=== PATIENT | female | born 1940 | race Caucasian/White ===

== ENCOUNTER → 2023-11-19 10:37 | Outpatient (REF) | payer MEDICARE, OTHER, SELFPAY ==
[2023-11-19 11:28] LABS: Hematocrit 33.6 % (37.0-47.0); Hemoglobin 10.6 g/dL (12.0-16.0); Mean Corp Hgb Conc. 31.5 g/dL (33.0-37.0); Mean Corpuscular Hgb 28.3 pg (27.0-31.0); Mean Corpuscular Volume 89.6 fL (81.0-99.0); Mean Platelet Volume 10.2 fL (7.4-10.4); Platelet Count 147 10^3/uL (130-400); Red Blood Cell Count 3.75 10^6/uL (4.20-5.40); Red Cell Dist. Width 22.2 % (11.5-14.5); White Blood Cell Count 6.4 10^3/uL (4.8-10.8)
== END ==
LOC: OLABN 10:37
PROVIDERS: ATTENDING PHYSICIAN Student in an Organized Health Care Education/Training Program
DX: I89.0 Lymphedema, not elsewhere classified (principal)
CPT/HCPCS: 36415; 85027

== ENCOUNTER → 2023-11-26 09:49 | Outpatient (REF) | payer MEDICARE, OTHER, SELFPAY ==
[2023-11-27 11:15] LABS: Glycohemoglobin (HgbA1c) 8.5 % (4.0-5.6)
== END ==
LOC: OLABN 09:49
PROVIDERS: ATTENDING PHYSICIAN Student in an Organized Health Care Education/Training Program
DX: Z51.81 Encounter for therapeutic drug level monitoring (principal); Z79.84 Long term (current) use of oral hypoglycemic drugs
CPT/HCPCS: 36415; 83036

== ENCOUNTER → 2023-11-30 10:19 | Outpatient (REF) | payer MEDICARE, OTHER, SELFPAY ==
[2023-11-30 11:49] LABS: Vitamin D, 25-OH*** 17.3 ng/mL (30-80)
== END ==
LOC: OLABN 10:19
PROVIDERS: ATTENDING PHYSICIAN Student in an Organized Health Care Education/Training Program
DX: E55.9 Vitamin D deficiency, unspecified (principal)
CPT/HCPCS: 36415; 82306

== ENCOUNTER → 2024-01-05 11:40 | Outpatient (REF) | payer MEDICARE, OTHER, SELFPAY | LOC: RAD 11:40 | PROVIDERS: ATTENDING PHYSICIAN Internal Medicine | DX: R91.8 Other nonspecific abnormal finding of lung field (principal); R93.89 Abnormal findings on diagnostic imaging of other specified body structures | CPT/HCPCS: 71250 ==

== ENCOUNTER → 2024-01-06 11:48 | Outpatient (REF) | payer MEDICARE, OTHER, SELFPAY ==
[2024-01-06 13:04] LABS: HDL Cholesterol 33 mg/dl; LDL Cholesterol, Calculated 9 mg/dl; Total Cholesterol 98 mg/dl (50-199); Triglyceride 280 mg/dl (10-149); Very Low Density Lipoprotein 56 mg/dl (0-30)
== END ==
LOC: OLABN 11:48
PROVIDERS: ATTENDING PHYSICIAN Student in an Organized Health Care Education/Training Program
DX: E78.5 Hyperlipidemia, unspecified (principal)
CPT/HCPCS: 36415; 80061

== ENCOUNTER → 2024-02-01 11:36 | Outpatient (REF) | payer MEDICARE, OTHER, SELFPAY ==
[2024-02-01 12:43] LABS: Vitamin D, 25-OH*** 31.8 ng/mL (30-80)
== END ==
LOC: OLABN 11:36
PROVIDERS: ATTENDING PHYSICIAN Student in an Organized Health Care Education/Training Program
DX: E55.9 Vitamin D deficiency, unspecified (principal)
CPT/HCPCS: 36415; 82306

== ENCOUNTER → 2024-02-24 10:34 | Outpatient (REF) | payer MEDICARE, OTHER, SELFPAY ==
[2024-02-24 11:21] LABS: % Eosinophils 3.1 % (0-6); % Immature Granulocytes 0.3 % (0-0.5); % Lymphocytes 32.8 % (20.5-51.1); % Monocytes 10.1 % (1.7-9.3); % Neutrophils 52.7 % (42.2-75.2); Absolute Basophils 0.1 10^3/uL (0-0.2); Absolute Eosinophils 0.2 10^3/uL (0-0.7); Absolute Lymphocytes 2.2 10^3/uL (1.2-3.4); Absolute Monocytes 0.7 10^3/uL (0.1-0.6); Absolute Neutrophils 3.5 10^3/uL (1.4-6.5); Hematocrit 35.8 % (37.0-47.0); Hemoglobin 12.1 g/dL (12.0-16.0); Mean Corp Hgb Conc. 33.8 g/dL (33.0-37.0); Mean Corpuscular Hgb 31.3 pg (27.0-31.0); Mean Corpuscular Volume 92.5 fL (81.0-99.0); Mean Platelet Volume 10.6 fL (7.4-10.4); Nucleated Red Blood Cells % 0 %; Platelet Count 147 10^3/uL (130-400); Red Blood Cell Count 3.87 10^6/uL (4.20-5.40); Red Cell Dist. Width 14.6 % (11.5-14.5); White Blood Cell Count 6.7 10^3/uL (4.8-10.8)
[2024-02-24 12:17] LABS: ALT (SGPT) 17 U/L (0-35); AST (SGOT) 24 U/L (14-36); Albumin 3.1 g/dl (3.5-5.0); Alkaline Phosphatase 175 U/L (38-126); Blood Urea Nitrogen 13 mg/dl (7-17); Calcium 8.9 mg/dl (8.4-10.2); Carbon Dioxide 30 mmol/L (22-30); Chloride 96 mmol/L (98-107); Glucose 311 mg/dl (70-99); Magnesium 1.8 mg/dl (1.6-2.3); Potassium 3.3 mmol/L (3.5-5.1); Sodium 134 mmol/L (135-145); Total Bilirubin 0.6 mg/dl (0.2-1.3); Total Protein 6.3 g/dl (6.3-8.2); eGFR > 60.00
== END ==
LOC: OLABN 10:34
PROVIDERS: ATTENDING PHYSICIAN Student in an Organized Health Care Education/Training Program
DX: I10 Essential (primary) hypertension (principal)
CPT/HCPCS: 36415; 80053; 83735; 85025

== ENCOUNTER → 2024-03-03 10:11 | Outpatient (REF) | payer MEDICARE, OTHER, SELFPAY ==
[2024-03-03 11:38] LABS: Blood Urea Nitrogen 21 mg/dl (7-17); Calcium 8.4 mg/dl (8.4-10.2); Carbon Dioxide 33 mmol/L (22-30); Chloride 97 mmol/L (98-107); Glucose 196 mg/dl (70-99); Potassium 3.5 mmol/L (3.5-5.1); Sodium 137 mmol/L (135-145); eGFR > 60.00
[2024-03-03 13:14] LABS: Glycohemoglobin (HgbA1c) 11.7 % (4.0-5.6)
== END ==
LOC: OLABN 10:11
PROVIDERS: ATTENDING PHYSICIAN Student in an Organized Health Care Education/Training Program
DX: E87.6 Hypokalemia (principal); E11.65 Type 2 diabetes mellitus with hyperglycemia
CPT/HCPCS: 36415; 80048; 83036

== ENCOUNTER → 2024-03-10 10:15 | Outpatient (REF) | payer MEDICARE, OTHER, SELFPAY ==
[2024-03-11 09:11] LABS: Glycohemoglobin (HgbA1c) 11.9 % (4.0-5.6)
== END ==
LOC: OLABN 10:15
PROVIDERS: ATTENDING PHYSICIAN Student in an Organized Health Care Education/Training Program
DX: E11.42 Type 2 diabetes mellitus with diabetic polyneuropathy (principal)
CPT/HCPCS: 36415; 83036

== ENCOUNTER → 2024-04-04 20:30 | Outpatient (REF) | payer MEDICARE, OTHER, SELFPAY ==
[2024-04-05 13:26] LABS: Urine Albumin Negative (Neg - Trace); Urine Bilirubin Negative (Negative); Urine Character Clear (Clear); Urine Color Yellow; Urine Glucose Negative (Negative); Urine Ketone Negative (Negative); Urine Leukocyte Negative (Negative); Urine Nitrite Negative (Negative); Urine Occult Blood Negative (Negative); Urine Urobilinogen Negative (Neg - 1+)
== END ==
LOC: OLABN 20:30
PROVIDERS: ATTENDING PHYSICIAN Student in an Organized Health Care Education/Training Program
DX: E87.6 Hypokalemia (principal); R30.9 Painful micturition, unspecified
CPT/HCPCS: 81003; 87086

== ENCOUNTER → 2024-04-05 13:33 | Outpatient (REF) | payer MEDICARE, OTHER, SELFPAY ==
[2024-04-05 14:14] LABS: Blood Urea Nitrogen 15 mg/dl (7-17); Calcium 8.5 mg/dl (8.4-10.2); Carbon Dioxide 31 mmol/L (22-30); Chloride 100 mmol/L (98-107); Glucose 210 mg/dl (70-99); Potassium 3.2 mmol/L (3.5-5.1); Sodium 137 mmol/L (135-145); eGFR > 60.00
== END ==
LOC: OLABN 13:33
PROVIDERS: ATTENDING PHYSICIAN Student in an Organized Health Care Education/Training Program
DX: E87.6 Hypokalemia (principal)
CPT/HCPCS: 36415; 80048

== ENCOUNTER → 2024-04-09 20:00 | Outpatient (REF) | payer MEDICARE, OTHER, SELFPAY ==
[2024-04-10 01:37] LABS: Urine Albumin Negative (Neg - Trace); Urine Bilirubin Negative (Negative); Urine Character Slightly Cloudy (Clear); Urine Color Yellow; Urine Glucose Trace (Negative); Urine Ketone Negative (Negative); Urine Leukocyte Negative (Negative); Urine Nitrite Negative (Negative); Urine Occult Blood Negative (Negative); Urine Specific Gravity 1.015 (<1.030); Urine Urobilinogen Negative (Neg - 1+)
== END ==
LOC: OLAB 20:00
PROVIDERS: ATTENDING PHYSICIAN Student in an Organized Health Care Education/Training Program
DX: R30.9 Painful micturition, unspecified (principal)
CPT/HCPCS: 81003; 87086

== ENCOUNTER → 2024-04-11 11:18 | Outpatient (REF) | payer MEDICARE, OTHER, SELFPAY ==
[2024-04-11 12:42] LABS: Blood Urea Nitrogen 14 mg/dl (7-17); Calcium 8.7 mg/dl (8.4-10.2); Carbon Dioxide 30 mmol/L (22-30); Chloride 100 mmol/L (98-107); Glucose 260 mg/dl (70-99); Potassium 3.3 mmol/L (3.5-5.1); Sodium 138 mmol/L (135-145); eGFR > 60.00
== END ==
LOC: OLABN 11:18
PROVIDERS: ATTENDING PHYSICIAN Student in an Organized Health Care Education/Training Program
DX: E87.6 Hypokalemia (principal)
CPT/HCPCS: 80048

== ENCOUNTER → 2024-04-18 10:32 | Outpatient (REF) | payer MEDICARE, OTHER, SELFPAY ==
[2024-04-18 12:31] LABS: Blood Urea Nitrogen 13 mg/dl (7-17); Calcium 8.8 mg/dl (8.4-10.2); Carbon Dioxide 28 mmol/L (22-30); Chloride 102 mmol/L (98-107); Glucose 267 mg/dl (70-99); Potassium 3.4 mmol/L (3.5-5.1); Sodium 139 mmol/L (135-145); eGFR > 60.00
== END ==
LOC: OLABN 10:32
PROVIDERS: ATTENDING PHYSICIAN Student in an Organized Health Care Education/Training Program
DX: E87.6 Hypokalemia (principal)
CPT/HCPCS: 36415; 80048

== ENCOUNTER 2024-07-29 17:57 | Emergency (ER) | payer MEDICARE, OTHER, SELFPAY ==
[2024-07-29 18:00] VITALS: BP 154/79
[2024-07-29 18:03] VITALS: BP 154/79
[2024-07-29 18:07] VITALS: BMI 50.2
[2024-07-29 19:00] VITALS: BP 100/67
--- NOTE | 2024-07-29 19:09 | ED.GENMED ---
History of Present Illness
General
Chief Complaint: Fall
Source: patient
Exam Limitations: none
Time Seen by Provider: 07/29/24 18:27
History of Present Illness
History of Present Illness:
This is a 84 year old female that comes in with c/o fall. States that she was sitting on the toilet and her back started to hurt. States that she went to get up and the floor was slippery. States that her right leg went out from under her and she
landed on her buttocks. States that she hit her head on the wheelchair and her left leg was bent. States that she has left knee discomfort. Denies any LOC. States that she landed between the toilet and the wall. States that she was a little
nauseated today, has diarrhea on and off and a headache. States that she was dizzy in the morning but she has Vertigo. States that she doesn't have urinary burning but hurts. Denies any fever, chills, chest pain, SOB, abd pain, vomiting
Past History
Past History
ED Past Medical History: CVA, Fibromyalgia, GERD, Hypercholesterolemia, NIDDM, Hypothyroidism, Psychiatric and Other (Back pain, Spinal stenosis, Lymphedema, Vertigo)
ED Past Surgical History: Gynecological (Hysterectomy), Orthopedic (L4-L5 lumbar laminectomy 07/04/2014) and Other (thyroidectomy. Carpal tunnel and blepharoplasty, Cataracts, Eye lid surgery bilateral,Lumbar 4-5 discectomy,)
Social History
Tobacco: Former smoker
Alcohol: None
Drug: None
Personal: (Has a boyfriend)
Living: penitentiary ([facility])
Employment: Not employed
Family History
Family History: Unable to obtain
Review of Systems
Review of Systems
All Other Systems: ROS reviewed and negative except as documented in HPI and ROS
Constitutional: Reports no symptoms; Denies fever or chills
EENT: Reports no symptoms
Respiratory: Reports no symptoms; Denies cough or trouble breathing
Cardiac: Reports no symptoms; Denies chest pain
ABD/GI: Reports nausea and diarrhea (on and off); Denies abdominal pain or vomiting
: Reports other (c/o hurting but no burning); Denies dysuria, frequency or urgency
Musculoskeletal: Reports no symptoms
Skin: Reports no symptoms
Neurological: Reports dizzy (in the morning only) and headache
Psychiatric: Reports no symptoms
Phy Exam
General Physical Exam
General Presentation: no apparent distress
General age: appears stated age
General Skin: warm and dry
General Habitus: elderly
General Mental: alert
General Hydration: appears well hydrated
ENT Exam
ENT Exam: TM's normal, pharynx normal and neck supple
Eye Exam
Eye Exam: EOMI
Cardiovascular Exam
Cardiovascular Exam: regular rate/rhythm and normal peripheral pulses
Pulmonary Exam
Pulmonary Exam: lungs clear, no respiratory distress, no rales, chest non tender, no crackles, no rhonchi, no wheezing and no cough
Gastrointestinal Exam
Gastrointestinal Exam: normal bowel sounds, soft, no organomegaly, no pulsatile mass, non distended and tender (Tenderness left side only with palpation. NO pain unless palpated)
Musculoskeletal Exam
Musculoskeletal Exam: full ROM, edema (Chronic nonpitting lower leg edema) and other (Negative cervical neck tenderness. Moving all extremities. Negative discomfort with flexion of the left knee)
Skin Exam
Skin Exam: normal color, warm/dry and no petechia
Psychiatric Exam
Psychiatric Exam: normal mood/affect
Course
Orders/Labs/Results
Orders:
Orders
07/29/24 18:54
CT Head W/o Iv Contrast Urgent
Comment:
Reason For Exam: Fall hitting head on wheelchair
CR Knee - Left 4 Or More View* Urgent
Comment:
Reason For Exam: Fall knee pain
07/29/24 19:35
Urinalysis Reflex To Culture Urgent
Date Specimen was Collected: 07/29/24
Time Specimen was Collected: 19:34
Abnormal Lab Results
07/29/24
19:35
Urine Glucose 1+ A
(Negative)
uRINE NEGATIVE FOR INFECTION.
Vital Signs
Initial and Last Documented VS:
Initial Vital Signs
Temp Pulse Resp BP Pulse Ox
97.8 F 78 18 154/79 94
07/29/24 18:03 07/29/24 18:03 07/29/24 18:03 07/29/24 18:03 07/29/24 18:03
Last Documented Vital Signs
Temp Pulse Resp BP Pulse Ox
97.8 F 78 18 154/79 94
07/29/24 18:03 07/29/24 18:03 07/29/24 18:03 07/29/24 18:03 07/29/24 18:03
MDM/Problems Addressed
Differential Diagnosis Includes:
Accidental fall, Knee sprain left, Intracranial bleed
MDM/Problems Addressed:
This is a 84 year old female that comes in with c/o fall. States that she was getting up of the toilet and the floor was slippery and she went down on her buttocks. States that she hit her head on the wheelchair and her left leg was in a funny
position causing left knee discomfort.
Will get X-ray knee and CT head. Will also get urine as patient c/o it hurting.
Back into see patient. Explained that the CT of the head was negative and there is no fracture or disclocation of the knee but degenerative changes. Patient will go back to the assisted.
Chronic conditions affecting care:
NA
Acute Exacerbation and/or Progression of Chronic Illness:
NA
*Radiology
Radiology exam reviewed: radiology read reviewed (Left knee-NO acute osseous abnormality. Severe degenerative changes of the knee most pronounced in the medial compartment. CT head-NO acute intracranial abnormality noted. Moderate atrophy with
sequelae of moderate small vessel ischemic disease. )
*Pulse Oximetry
Patient hypoxic: no
*EKG
Interpreted by ED Provider?: NA
Rate: EKG- N/A
*Crop Picker Interpretation
Rate: normal
Heart Rate: 80
Rhythm: sinus
*Critical Care Note
Total Time (30-74mins, 75-104mins- exclusive of procedures): Not Applicable
ED Attending Note
-
Portions of this chart may have been created with voice recognition software.� Occasional wrong word or��sound alike� substitutions may have occurred due to the inherent limitations of voice recognition software.
Discharge Plan
Departure
Patient Disposition: Retirement/SNF
Date of Disposition: 07/29/24
Time of Disposition: 20:46
Patient with high blood pressure during this ER visit?: Yes
Condition: Good
Covid-19: Not Applicable
Discharge Problem:
Accidental fall
Instructions: Preventing falls in adults, BLOOD PRESSURE
Prescriptions:
No Action
levothyroxine 137 MCG tablet
137 mcg PO DAILY
atorvastatin 40 MG tablet
40 mg PO QPM 30 Days Qty: 30 0RF
metoprolol succinate 25 MG tablet extended release 24 hr
25 mg PO DAILY 30 Days Qty: 30 0RF
ammonium lactate 12 % lotion
1 applic TOPICAL DAILY
Rx Instructions:
to legs
glipizide 5 mg tablet extended release 24hr
5 mg PO DAILY
Januvia 100 mg tablet
100 mg PO DAILY
diclofenac sodium 1 % gel
1 ea TOPICAL BID PRN (Reason: topical pain)
apixaban 5 mg Tablet
5 mg PO BID
furosemide 40 mg Tablet
40 mg PO BID AT 0800,1600 30 Days Qty: 60 0RF
polyethylene glycol 3350 17 gram Powder In Packet
17 g PO DAILY 30 Days Qty: 30 0RF
Rx Instructions:
Hold if regular bowel movements or diarrhea
miconazole nitrate [Miconazorb AF] 2 % Powder
1 applic topical BID 30 Days Qty: 85 0RF
oxycodone-acetaminophen 5-325 mg Tablet
2 tab PO Q6HPRN PRN (Reason: MODERATE PAIN) 30 Days Qty: 30 0RF
pantoprazole 40 mg Tablet,Delayed Release (Dr/Ec)
40 mg PO DAILY 30 Days Qty: 30 0RF
guaifenesin [Mucinex] 600 mg Tablet Extended Release 12hr
600 mg PO Q12 30 Days Qty: 60 0RF
potassium chloride [Klor-Con M20] 20 MEQ tablet,ER particles/crystals
20 meq PO BID 30 Days Qty: 0 0RF
Referrals:
Ba Roe DO [Family Provider] - Call in 1-3 days for appt
Activity Restrictions/Additional Instructions:
As discussed, your CT of the head is negative for any acute process. Your Knee x-ray is negative for any fractures or dislocation. There is a lot of degenerative changes. Please follow up with the family doctor as needed. Tylenol 1000mg every 6
hours as needed for pain IF YOU HAVE ANY OTHER CONCERNS PLEASE RETURN TO THE EMERGENCY ROOM
Interventions
Interventions:
*Risk Screen - Suicide Last Done: 07/29/24 18:07
*General Assessment Last Done: 07/29/24 18:07
*Neglect/Abuse Screening Last Done: 07/29/24 18:07
*ED COVID-19 Vaccine History Last Done: 07/29/24 18:07
ED-Musculoskeletal Assessment Last Done: 07/29/24 18:10
ED- Neurological Assessment Last Done: 07/29/24 18:10
ED-Skin Assessment Last Done: 07/29/24 18:10
Discharge Date and Time
Print Language: BULGARIAN
[2024-07-29 19:45] LABS: Urine Albumin Trace (Neg - Trace); Urine Bilirubin Negative (Negative); Urine Character Clear (Clear); Urine Color Straw; Urine Glucose 1+ (Negative); Urine Ketone Negative (Negative); Urine Leukocyte Negative (Negative); Urine Nitrite Negative (Negative); Urine Occult Blood Negative (Negative); Urine Urobilinogen Negative (Neg - 1+)
[2024-07-29 20:28] VITALS: BP 119/102
[2024-07-29 23:24] VITALS: BP 137/79
[2024-07-29] MEDS: TYLENOL 1000 MG PO (23:29)
== END 2024-07-30 00:40 ==
LOC: EMR 17:57
PROVIDERS: Clinical Nurse Specialist Family Health; EMERGENCY PHYSICIAN Student in an Organized Health Care Education/Training Program; FAMILY PHYSICIAN Student in an Organized Health Care Education/Training Program
DX: M25.562 Pain in left knee (principal); W18.12XA Fall from or off toilet with subsequent striking against object, initial encounter; E03.9 Hypothyroidism, unspecified; E11.36 Type 2 diabetes mellitus with diabetic cataract; E78.00 Pure hypercholesterolemia, unspecified; K21.9 Gastro-esophageal reflux disease without esophagitis; M79.7 Fibromyalgia; Z86.73 Personal history of transient ischemic attack (TIA), and cerebral infarction without residual deficits; Z90.710 Acquired absence of both cervix and uterus
CPT/HCPCS: 99284; 70450; 73564; 81003

== ENCOUNTER → 2024-08-18 09:55 | Outpatient (REF) | payer MEDICARE, OTHER, SELFPAY ==
[2024-08-18 11:05] LABS: C-Reactive Protein < 5.00 mg/L (0.0-10.00)
[2024-08-18 13:47] LABS: Erythrocyte Sed Rate 19 mm/hour (0-20)
== END ==
LOC: OLABN 09:55
PROVIDERS: ATTENDING PHYSICIAN Student in an Organized Health Care Education/Training Program
DX: H49.20 Sixth [abducent] nerve palsy, unspecified eye (principal)
CPT/HCPCS: 36415; 85652; 86140

== ENCOUNTER → 2024-08-19 06:59 | Outpatient (REF) | payer MEDICARE, OTHER, SELFPAY ==
[2024-08-19 07:51] LABS: % Basophils 0.8 % (0-2); % Eosinophils 3.7 % (0-6); % Immature Granulocytes 0.3 % (0-0.5); % Lymphocytes 29.9 % (20.5-51.1); % Monocytes 9.4 % (1.7-9.3); % Neutrophils 55.9 % (42.2-75.2); Absolute Basophils 0.1 10^3/uL (0-0.2); Absolute Eosinophils 0.3 10^3/uL (0-0.7); Absolute Lymphocytes 2.3 10^3/uL (1.2-3.4); Absolute Monocytes 0.7 10^3/uL (0.1-0.6); Absolute Neutrophils 4.2 10^3/uL (1.4-6.5); Hematocrit 37.9 % (37.0-47.0); Hemoglobin 13.1 g/dL (12.0-16.0); Mean Corp Hgb Conc. 34.6 g/dL (33.0-37.0); Mean Corpuscular Hgb 32.5 pg (27.0-31.0); Nucleated Red Blood Cells % 0 %; Platelet Count 137 10^3/uL (130-400); Red Blood Cell Count 4.03 10^6/uL (4.20-5.40); Red Cell Dist. Width 13.4 % (11.5-14.5); White Blood Cell Count 7.6 10^3/uL (4.8-10.8)
[2024-08-19 07:54] LABS: ALT (SGPT) 26 U/L (0-35); AST (SGOT) 30 U/L (14-36); Albumin 3.3 g/dl (3.5-5.0); Alkaline Phosphatase 148 U/L (38-126); Blood Urea Nitrogen 15 mg/dl (7-17); Calcium 8.6 mg/dl (8.4-10.2); Carbon Dioxide 33 mmol/L (22-30); Chloride 97 mmol/L (98-107); Glucose 355 mg/dl (70-99); Potassium 3.7 mmol/L (3.5-5.1); Sodium 137 mmol/L (135-145); Total Bilirubin 0.6 mg/dl (0.2-1.3); Total Protein 6.2 g/dl (6.3-8.2); eGFR > 60.00
[2024-08-19 08:09] LABS: Free T4 0.79 ng/dl (0.78-2.19)
[2024-08-19 08:23] LABS: TSH 1.57 uIU/ml (0.47-4.68)
[2024-08-19 11:46] LABS: Glycohemoglobin (HgbA1c) 10.8 % (4.0-5.6)
== END ==
LOC: OLABN 06:59
PROVIDERS: ATTENDING PHYSICIAN Student in an Organized Health Care Education/Training Program
DX: I50.32 Chronic diastolic (congestive) heart failure (principal); E11.9 Type 2 diabetes mellitus without complications
CPT/HCPCS: 36415; 80053; 83036; 84439; 84443; 85025

== ENCOUNTER → 2024-09-26 11:02 | Outpatient (REF) | payer OTHER, MEDICARE, SELFPAY ==
[2024-09-26 12:36] LABS: Creatine Phosphokinase 42 U/L (30-135)
== END ==
LOC: OLABN 11:02
PROVIDERS: ATTENDING PHYSICIAN Student in an Organized Health Care Education/Training Program
DX: H49.21 Sixth [abducent] nerve palsy, right eye (principal)
CPT/HCPCS: 36415; 82550

== ENCOUNTER → 2024-11-03 10:56 | Outpatient (REF) | payer MEDICARE, OTHER, SELFPAY ==
[2024-11-03 12:26] LABS: % Basophils 0.6 % (0-2); % Eosinophils 3.3 % (0-6); % Immature Granulocytes 0.1 % (0-0.5); % Lymphocytes 29.6 % (20.5-51.1); % Neutrophils 57.4 % (42.2-75.2); Absolute Eosinophils 0.2 10^3/uL (0-0.7); Absolute Monocytes 0.6 10^3/uL (0.1-0.6); Absolute Neutrophils 3.9 10^3/uL (1.4-6.5); Hematocrit 37.1 % (37.0-47.0); Hemoglobin 12.4 g/dL (12.0-16.0); Mean Corp Hgb Conc. 33.4 g/dL (33.0-37.0); Mean Corpuscular Hgb 31.6 pg (27.0-31.0); Mean Corpuscular Volume 94.6 fL (81.0-99.0); Mean Platelet Volume 11.1 fL (7.4-10.4); Nucleated Red Blood Cells % 0 %; Platelet Count 153 10^3/uL (130-400); Red Blood Cell Count 3.92 10^6/uL (4.20-5.40); Red Cell Dist. Width 13.8 % (11.5-14.5); White Blood Cell Count 6.7 10^3/uL (4.8-10.8)
[2024-11-03 12:37] LABS: Blood Urea Nitrogen 16 mg/dl (7-17); Calcium 8.9 mg/dl (8.4-10.2); Carbon Dioxide 33 mmol/L (22-30); Chloride 97 mmol/L (98-107); Glucose 428 mg/dl (70-99); Potassium 4.3 mmol/L (3.5-5.1); Sodium 134 mmol/L (135-145); eGFR > 60.00
== END ==
LOC: OLABN 10:56
PROVIDERS: ATTENDING PHYSICIAN Student in an Organized Health Care Education/Training Program
DX: I50.32 Chronic diastolic (congestive) heart failure (principal); E83.42 Hypomagnesemia
CPT/HCPCS: 36415; 80048; 83735; 85025

== ENCOUNTER → 2024-11-21 12:03 | Outpatient (REF) | payer MEDICARE, OTHER, SELFPAY ==
[2024-11-21 12:43] LABS: % Basophils 0.6 % (0-2); % Eosinophils 2.9 % (0-6); % Immature Granulocytes 0.5 % (0-0.5); % Lymphocytes 25.2 % (20.5-51.1); % Monocytes 9.3 % (1.7-9.3); % Neutrophils 61.5 % (42.2-75.2); Absolute Basophils 0.1 10^3/uL (0-0.2); Absolute Eosinophils 0.2 10^3/uL (0-0.7); Absolute Monocytes 0.8 10^3/uL (0.1-0.6); Hematocrit 38.7 % (37.0-47.0); Hemoglobin 12.7 g/dL (12.0-16.0); Mean Corp Hgb Conc. 32.8 g/dL (33.0-37.0); Mean Corpuscular Hgb 31.8 pg (27.0-31.0); Mean Platelet Volume 11.2 fL (7.4-10.4); Nucleated Red Blood Cells % 0 %; Platelet Count 147 10^3/uL (130-400); Red Blood Cell Count 3.99 10^6/uL (4.20-5.40); White Blood Cell Count 8.1 10^3/uL (4.8-10.8)
[2024-11-21 13:05] LABS: ALT (SGPT) 37 U/L (0-35); AST (SGOT) 40 U/L (14-36); Albumin 3.4 g/dl (3.5-5.0); Alkaline Phosphatase 200 U/L (38-126); Blood Urea Nitrogen 21 mg/dl (7-17); Calcium 8.6 mg/dl (8.4-10.2); Carbon Dioxide 33 mmol/L (22-30); Chloride 95 mmol/L (98-107); Glucose 357 mg/dl (70-99); HDL Cholesterol 43 mg/dl; LDL Cholesterol, Calculated 35 mg/dl; Potassium 3.6 mmol/L (3.5-5.1); Sodium 134 mmol/L (135-145); Total Bilirubin 0.8 mg/dl (0.2-1.3); Total Cholesterol 131 mg/dl (50-199); Total Protein 6.4 g/dl (6.3-8.2); Triglyceride 269 mg/dl (10-149); Very Low Density Lipoprotein 53 mg/dl (0-30); eGFR > 60.00
[2024-11-21 13:20] LABS: Free T4 0.79 ng/dl (0.78-2.19)
[2024-11-21 13:34] LABS: TSH 1.53 uIU/ml (0.47-4.68)
[2024-11-22 09:14] LABS: Glycohemoglobin (HgbA1c) 10.5 % (4.0-5.6)
== END ==
LOC: OLABN 12:03
PROVIDERS: ATTENDING PHYSICIAN Student in an Organized Health Care Education/Training Program
DX: E11.65 Type 2 diabetes mellitus with hyperglycemia (principal)
CPT/HCPCS: 36415; 80053; 80061; 83036; 84439; 84443; 85025

== ENCOUNTER 2024-12-07 18:19 | Observation (INO) | payer MEDICARE, OTHER, SELFPAY ==
[2024-12-07 13:51] VITALS: BMI 47.3
[2024-12-07 14:04] VITALS: BP 146/71
[2024-12-07 14:07] VITALS: BP 146/71
[2024-12-07 14:08] LABS: Glucose - Point of Care 338 mg/dl (70-99)
--- NOTE | 2024-12-07 14:22 | ED.CVA ---
History of Present Illness
General
Chief Complaint: CVA/TIA Symptoms
Source: patient, ambulance crew and senior living
Exam Limitations: none
Time Seen by Provider: 12/07/24 14:11
Nursing documentation reviewed up to this point in time: agreed with
Onset of Stroke Symptoms
Onset of symptoms known: Yes
Date of onset of symptoms: 12/07/24
History of Present Illness
History of Present Illness:
84-year-old female with a past medical history of hyperlipidemia, CKD, diabetes, A-fib on Eliquis who presents to the emergency department from [facility] after she was noted to have facial droop. Patient is a poor historian with poor
insight�she says 'I do not know why I am here, they were worried about me.' She acknowledges that they mention she had a facial droop. She says otherwise she feels fine but when pressed she complains of pain in her left hip and also complains of
some dizziness. Denies chest pain, abdominal pain, headache, acute vision changes or speech issues. [facility] report the patient chronically minimizes her symptoms. They report that 3 to 4 days ago she had a minor
mechanical fall unsure if she had any head strike but she was complaining of pain in her left hip after the fall. She was having trouble ambulating due to this pain. Since the fall she has been complaining of dizziness which is a new complaint per
staff (patient says it is not new). Today around lunchtime was noted to have a left-sided facial droop. Unclear onset. EMS called to bring her to the hospital.
Past History
Past History
ED Past Medical History: CVA, Fibromyalgia, GERD, Hypercholesterolemia, NIDDM, Hypothyroidism, Psychiatric and Other (Back pain, Spinal stenosis, Lymphedema, Vertigo)
ED Past Surgical History: Gynecological (Hysterectomy), Orthopedic (L4-L5 lumbar laminectomy 07/04/2014) and Other (thyroidectomy. Carpal tunnel and blepharoplasty, Cataracts, Eye lid surgery bilateral,Lumbar 4-5 discectomy,)
Social History
Tobacco: Former smoker
Alcohol: None
Drug: None
Personal: (Has a boyfriend)
Living: senior living ([facility])
Employment: Not employed
Family History
Family History: Unable to obtain
Review of Systems
Review of Systems
All Other Systems: ROS reviewed and negative except as documented in HPI and ROS
Respiratory: Denies trouble breathing
Cardiac: Denies chest pain
ABD/GI: Denies abdominal pain or vomiting
: Denies flank pain
Musculoskeletal: Reports joint pain (Hip pain on the left); Denies neck pain
Neurological: Reports dizzy and weakness (Facial droop); Denies headache
Phy Exam
Physical Exam
Physical Exam:
General: Awake, alert, oriented x3; no acute distress
Head: Normocephalic, atraumatic
Eyes: Conjunctiva normal, EOMI, pupils equal round and reactive to light bilaterally
Throat: Airway intact, handling secretions
Neck: Trachea midline, no cervical spine tenderness
Lungs: Clear to auscultation bilaterally, no wheezing, rales, rhonchi
Heart: Regular rate and irregularly irregular rhythm, no murmurs, gallops, or rubs
Abd: Soft, non distended, nontender
Neuro: Patient has left-sided facial droop, speech fluid no dysarthria or aphasia, no limb ataxia; sensory exam intact throughout all extremities; strength testing upper extremities 5/5 proximally and distally; strength testing lower extremities she
has 3/5 strength proximally left lower extremity, 4/5 strength approximately right lower extremity, distal strength intact bilaterally in the lower legs 5/5
Skin: no rash
Extremities: Patient has pain with passive range of motion of the left hip; extremities otherwise atraumatic and no tenderness; she has edema in the lower extremities bilaterally, equal pulses in all extremities
Scores
NIH Stroke Score
Level of Consciousness: 0 - Alert
LOC Questions: 0-Answers both correctly
LOC Commands: 0-Performs both correctly
Best Horizontal Gaze: 0-Normal
Visual Robertson: 0=Normal, no visual loss
Facial Palsy: 2=Partial paralysis
Motor - Right Arm: 0=No drift 10 seconds
Motor - Left Arm: 0=No drift 10 seconds
Motor - Right Le-Drift < 5 seconds
Motor - Left Le-Drift < 5 seconds
Limb Ataxia: 0-Absent
Sensation: 0-Normal
Best Language: 0-No aphasia
Dysarthria: 0-Normal
Extinction and Inattention: 0-No abnormality
Total Score:: 4
Thrombolytic Contraindication
Inclusion and Exclusion criteria reviewed: Yes
Reasons for NON-Tx with Thrombolytics ABSOLUTE Exclusions: Greater than 4.5 hrs from onset of sxs (Onset unclear, dizziness started a few days ago) and Patient taking oral anticoagulant and last dose within 48 hours
Heart Failure Risk
Heart Failure Risk Score: Not Applicable
Heart Score for Chest Pain Patients
STEMI patient?: Not applicable
Withdrawal Assessment of Alcohol
Withdrawal Assessment Completed?: Not applicable
Course
Orders/Labs/Results
Orders:
Orders
12/07/24 13:56
Electrocardiogram (*1) Urgent
Reason for Study: Vertigo / Dizzy
EKG- Treatment ONCE
12/07/24 14:17
Complete Blood Count/With Diff Urgent
Comprehensive Metabolic Panel Urgent
12/07/24 14:20
CT Head W/o Iv Contrast Urgent
Comment:
Reason For Exam: left facial droop
12/07/24 14:23
CR Hip - LT w/wo Pel 2-3 Vw* Urgent
Comment:
Reason For Exam: left hip pain
Include a pelvis x-ray?: Yes
12/07/24 14:24
Consult Neurology [NEUROLOGY CONSULT] Urgent
Consulting Provider: Rod Young
Was physician already notified: Yes
12/07/24 17:16
Doxycycline [Vibramycin] 100 mg PO NOW STA
Abnormal Lab Results
12/07/24 12/07/24
14:06 14:17
RBC 4.11 L 10^6/uL
(4.20-5.40)
MCH 31.9 H pg
(27.0-31.0)
Abs Immat Gran (auto) 0.1 H 10^3/uL
(0-0.05)
Absolute Monos (auto) 0.7 H 10^3/uL
(0.1-0.6)
Immature Gran % 0.6 H %
(0-0.5)
Chloride 96 L mmol/L
(98-107)
Carbon Dioxide 37 H mmol/L
(22-30)
Glucose 303 H mg/dl
(70-99)
Albumin 3.3 L g/dl
(3.5-5.0)
POC Glucose 338 H mg/dl
(70-99)
12/07/24 14:17
12/07/24 14:17
Vital Signs
Initial and Last Documented VS:
Initial Vital Signs
BP
146/71
12/07/24 14:04
Last Documented Vital Signs
Temp Pulse Resp BP Pulse Ox
36.7 C 53 16 146/71 96
12/07/24 14:07 12/07/24 14:15 12/07/24 16:00 12/07/24 14:07 12/07/24 14:15
MDM/Problems Addressed
Differential Diagnosis Includes:
Facial droop: Phelan's palsy, CVA, brain bleed
Dizziness: Stroke, anemia, dehydration, brain bleed
Left hip pain: Fracture, contusion, dislocation
MDM/Problems Addressed:
84-year-old female presents for evaluation of left facial droop also has been complaining of dizziness at least for the past few days and some left hip pain after a minor fall. She is on Eliquis. Vitals and exam as above. No stroke alert called
given unclear onset and anticoagulant use. I did however discussed with neurology who came to bedside for evaluation. Will send for CT head. Check x-ray of the hip. Check labs including a CBC and a CMP. EKG on arrival does show atrial
fibrillation. Will monitor closely reassess after the above.
CT head shows acute on chronic maxillary sinusitis�can cover with antibiotic. No acute intracranial abnormality. X-ray of the hip shows no fracture. Case discussed with neurology at length�they feel that some of the dizziness could be from BPPV.
Subtle facial droop could be a stroke but even if this is a stroke unlikely that there would be any acute change to her management. Unlikely that she would be a candidate for carotid endarterectomy and with full anticoagulation on board would not
adjust blood thinners. Nevertheless I think with diagnosis of stroke in question she should be admitted for serial neurologic exams. Discussed case with hospitalist.
Chronic conditions affecting care:
A-fib on Eliquis, diabetes, hyperlipidemia
*Radiology
Radiology exam reviewed: radiology read reviewed
*Pulse Oximetry
Patient hypoxic: no
*EKG
Interpreted by ED Provider?: Yes
Heart Rate: 59
Rate: bradycardiac
Rhythm: a-fib
[place]: normal axis
Interval: normal interval
QRS Pattern: low voltage
Ischemia: other (Inferior infarct age undetermined)
*Critical Care Note
Total Time (30-74mins, 75-104mins- exclusive of procedures): Not Applicable
Data Reviewed
Review of Other/Old Records Reveals: Labs and Records
Source: patient, ambulance crew and senior living
Patient Management
Discussion with other providers: Hospitalist (Discussed with hospitalist) and Flexo Operator (Discussed with neurologist)
Escalation/DeEscalation of care consider admission/obs:
Admission indicated
ED Attending Note
-
Portions of this chart may have been created with voice recognition software.� Occasional wrong word or��sound alike� substitutions may have occurred due to the inherent limitations of voice recognition software.
Discharge Plan
Departure
Patient Disposition: Admit
Date of Disposition: 12/07/24
Time of Disposition: 17:10
Admit to doctor: Dinah
Presentation/result/management discussed w/ accepting MD/DO: Hospitalist
Discharge Problem:
Acute CVA (cerebrovascular accident), Dizziness, Hyperglycemia, Sinusitis
Prescriptions:
No Action
atorvastatin 40 MG tablet
40 mg PO QPM 30 Days Qty: 30 0RF
metoprolol succinate 25 MG tablet extended release 24 hr
25 mg PO DAILY 30 Days Qty: 30 0RF
Januvia 100 mg tablet
100 mg PO DAILY
apixaban 5 mg Tablet
5 mg PO BID
potassium chloride [Klor-Con M20] 20 MEQ tablet,ER particles/crystals
20 meq PO BID 30 Days Qty: 0 0RF
Arnicare gel
1 applic topical HS
acetaminophen 325 mg Tablet
650 mg PO Q4HPRN PRN (Reason: mild pain/fever)
glipizide 10 mg Tablet Extended Release 24hr
10 mg PO DAILY
ondansetron HCl [Zofran] 4 mg Tablet
4 mg PO Q8HPRN PRN (Reason: nausea)
sennosides-docusate sodium [Senna-S] 8.6-50 mg Tablet
1 tab-cap PO DAILY
meclizine 12.5 mg Tablet
12.5 mg PO Q6HPRN PRN (Reason: vertigo)
tramadol 50 mg Tablet
50 mg PO BIDPRN PRN (Reason: moderate pain)
meloxicam 7.5 mg Tablet
7.5 mg PO DAILY
levothyroxine 100 mcg Tablet
100 mcg PO DAILY
famotidine [Pepcid] 20 mg Tablet
20 mg PO DAILY
magnesium hydroxide [Milk of Magnesia] 400 mg/5 mL Suspension
30 ml PO HSPRN PRN (Reason: constipation)
calcium carbonate [Calcium 500] 500 mg calcium (1,250 mg) Tablet
500 mg PO BID
ascorbic acid (vitamin C) [Vitamin C] 500 mg Tablet
500 mg PO DAILY
bisacodyl 10 mg Suppository
10 mg MD [id number] PRN (Reason: 3 days no bm,mom ineffective)
ferrous sulfate 325 mg (65 mg iron) Tablet
325 mg PO DAILY
aspirin 81 mg Tablet,Chewable
81 mg PO DAILY
furosemide 20 mg Tablet
60 mg PO DAILY
albuterol sulfate 90 mcg/actuation Hfa Aerosol Inhaler
1 puff INHALATION R Q6HPRN PRN (Reason: sob)
sertraline 50 mg Tablet
50 mg PO DAILY
insulin aspart U-100 [Novolog FlexPen U-100 Insulin] 100 unit/mL (3 mL) Insulin Pen
1 sliding scale dose SC QID
Rx Instructions:
201-250=2u,251-300=4u,301-350=6u,351-400=8u,>400=10u
pregabalin 50 mg Capsule
50 mg PO BID
Vagisil Anti-Itch 1 % Towelette
1 towel TOPICAL DAILY
Patient Comments:
12/07/24: take for 7 days starting 12/02/24
mirabegron [Myrbetriq] 25 mg Tablet Extended Release 24 Hr
25 mg PO QPM
magnesium oxide 400 mg magnesium Tablet
400 mg PO BID
guaifenesin [Mucinex] 600 mg tablet extended release 12hr
600 mg PO [id number] PRN (Reason: cough)
ammonium lactate 12 % Lotion
1 applic TOPICAL DAILY
Referrals:
Ba Roe DO [Family Provider] -
Interventions
Interventions:
*General Assessment Last Done: 12/07/24 14:07
*Neglect/Abuse Screening Last Done: 12/07/24 14:07
*ED- Fall Risk Assessment Last Done: 12/07/24 14:16
*ED COVID-19 Vaccine History Last Done: 12/07/24 14:16
ED- Pulmonary Assessment Last Done: 12/07/24 14:05
ED- Neurological Assessment Last Done: 12/07/24 14:05
ED- Cardiac Assessment Last Done: 12/07/24 14:05
ED Swallowing Screen Last Done: 12/07/24 14:05
Discharge Date and Time
Print Language: CONGOLESE
[2024-12-07 14:31] LABS: % Basophils 0.6 % (0-2); % Immature Granulocytes 0.6 % (0-0.5); % Lymphocytes 25.5 % (20.5-51.1); % Monocytes 8.9 % (1.7-9.3); % Neutrophils 61.4 % (42.2-75.2); Absolute Basophils 0.1 10^3/uL (0-0.2); Absolute Eosinophils 0.3 10^3/uL (0-0.7); Absolute Immature Granulocytes 0.1 10^3/uL (0-0.05); Absolute Lymphocytes 2.1 10^3/uL (1.2-3.4); Absolute Monocytes 0.7 10^3/uL (0.1-0.6); Absolute Neutrophils 5.1 10^3/uL (1.4-6.5); Hematocrit 39.2 % (37.0-47.0); Hemoglobin 13.1 g/dL (12.0-16.0); Mean Corp Hgb Conc. 33.4 g/dL (33.0-37.0); Mean Corpuscular Hgb 31.9 pg (27.0-31.0); Mean Corpuscular Volume 95.4 fL (81.0-99.0); Mean Platelet Volume 10.2 fL (7.4-10.4); Nucleated Red Blood Cells % 0 %; Platelet Count 149 10^3/uL (130-400); Red Blood Cell Count 4.11 10^6/uL (4.20-5.40); Red Cell Dist. Width 13.9 % (11.5-14.5); White Blood Cell Count 8.3 10^3/uL (4.8-10.8)
[2024-12-07 14:47] LABS: ALT (SGPT) 22 U/L (0-35); AST (SGOT) 26 U/L (14-36); Albumin 3.3 g/dl (3.5-5.0); Alkaline Phosphatase 122 U/L (38-126); Blood Urea Nitrogen 17 mg/dl (7-17); Calcium 8.7 mg/dl (8.4-10.2); Carbon Dioxide 37 mmol/L (22-30); Chloride 96 mmol/L (98-107); Estimated Creatinine Clearance 53 ml/min; Glucose 303 mg/dl (70-99); Potassium 3.9 mmol/L (3.5-5.1); Sodium 136 mmol/L (135-145); Total Bilirubin 0.8 mg/dl (0.2-1.3); Total Protein 6.4 g/dl (6.3-8.2); eGFR 56.25
--- NOTE | 2024-12-07 17:14 | HPS.HSE ---
Family Physician
-
Family Physician: Ba Roe DO
Chief Complaint
-
dizzy
left facial droop
History of Present Illness
84-year-old female with a past medical history of hyperlipidemia, CKD, diabetes, A-fib on Eliquis,CHF who presents to the emergency department from [facility] after she was noted to have facial droop. she is been having dizziness since this
Thursday. she also complained of ALVAREZ. denied fever, chills, congestion, cough.denied chest pain, sob. denied abdominal pain,n ,v, d. denied dysuria or hematuria. she had a fall, few days ago, as her wheelchair brake was not working. she landed on her
hip. since then she is having hip pain.
Head CT with mild acute on chronic right maxillary sinusitis for which patient received Doxy in the ER. Admitted for further management
Medical History
Past Medical History
Past Medical History: Reports Other
Additional Past Medical History:
Hypothyroidism
CHF
Hypertension
A-fib
Type 2 diabetes
Obstructive sleep apnea
Hyperlipidemia
Pulmonary nodules
COPD
Depression
Diverticulosis
Graves' disease
TIA
Past Surgical History: Reports Other
Additional Past Surgical History:
Back surgery for spinal stenosis
Laminectomy
Hysterectomy
Social History
Tobacco: Former Smoker
Alcohol: None
Drug: None
Living: Assisted Living
Family History
Family History: Not pertinent
Allergies / Home Medications
Allergies reflects when Allergies were last updated in [facility]IN.
Home Medications with original date entered in BRAIN
Allergy/Medication List:
Allergies
Allergy/AdvReac Type Severity Reaction Status Date / Time
metformin Allergy Unknown Unknown Verified 12/07/24 13:59
semaglutide Allergy Unknown Unknown Verified 12/07/24 13:59
Penicillins Allergy Anaphylaxis,vomiting, Verified 12/07/24 13:59
loss of
breath
Home Medications
atorvastatin 40 mg tablet 40 mg PO QPM 30 days #30 tabs 10/29/20
metoprolol succinate 25 mg tablet,extended release 24 hr 25 mg PO DAILY 30 days #30 tabs 10/29/20
apixaban 5 mg tablet 5 mg PO BID Blood clot prevention/tx 07/23/22
sitagliptin phosphate 100 mg tablet (Januvia) 100 mg PO DAILY Diabetes 07/23/22
potassium chloride 20 mEq tablet,extended release(part/cryst) (Klor-Con M) 20 meq PO BID Supplement 30 days #0 tabs 07/30/22
Arnicare 1 applic topical HS lower bilateral legs 12/07/24
acetaminophen 325 mg tablet 650 mg PO Q4HPRN PRN mild pain/fever 12/07/24
albuterol sulfate 90 mcg/actuation aerosol inhaler 1 puff inhalation R Q6HPRN PRN sob 12/07/24
ammonium lactate 12 % lotion 1 applic topical DAILY b/l LE 12/07/24
ascorbic acid (vitamin C) 500 mg tablet (Vitamin C) 500 mg PO DAILY 12/07/24
aspirin 81 mg chewable tablet 81 mg PO DAILY 12/07/24
bisacodyl 10 mg rectal suppository 10 mg AZ [id number] PRN 3 days no bm,mom ineffective 12/07/24
calcium carbonate 500 mg PO BID 12/07/24
famotidine 20 mg tablet (Pepcid) 20 mg PO DAILY 12/07/24
ferrous sulfate 325 mg (65 mg iron) tablet 325 mg PO DAILY 12/07/24
furosemide 20 mg tablet 60 mg PO DAILY 12/07/24
glipizide 10 mg tablet, extended release 24 hr 10 mg PO DAILY 12/07/24
guaifenesin 600 mg tablet, extended release 12 hr (Mucinex) 600 mg PO [id number] PRN cough 12/07/24
insulin aspart U-100 100 unit/mL (3 mL) subcutaneous pen (Novolog FlexPen U-100 Insulin aspart) 1 sliding scale dose SC QID 12/07/24
levothyroxine 100 mcg tablet 100 mcg PO DAILY 12/07/24
magnesium hydroxide 400 mg/5 mL oral suspension (Milk of Magnesia) 30 ml PO HSPRN PRN constipation 12/07/24
magnesium oxide 400 mg PO BID 12/07/24
meclizine 12.5 mg tablet 12.5 mg PO Q6HPRN PRN vertigo 12/07/24
meloxicam 7.5 mg tablet 7.5 mg PO DAILY 12/07/24
mirabegron 25 mg tablet,extended release 24 hr (Myrbetriq) 25 mg PO QPM 12/07/24
ondansetron HCl 4 mg tablet 4 mg PO Q8HPRN PRN nausea 12/07/24
pramoxine 1 % towelette (Vagisil Anti-Itch) 1 towel topical DAILY labia majora/minora 12/07/24
pregabalin 50 mg capsule 50 mg PO BID 12/07/24
sennosides 8.6 mg-docusate sodium 50 mg tablet (Senna-S) 1 tab-cap PO DAILY 12/07/24
sertraline 50 mg tablet 50 mg PO DAILY 12/07/24
tramadol 50 mg tablet 50 mg PO BIDPRN PRN moderate pain 12/07/24
Review of Systems
-
Constitutional: Reports No Symptoms
EENT: Reports No Symptoms
Respiratory: Reports No Symptoms
Cardiac: Reports No Symptoms
Abdomen/GI: Reports No Symptoms
: Reports No Symptoms
Musculoskeletal: Reports No Symptoms
Skin: Reports No Symptoms
Neurological: Reports Dizzy and Headache
Endocrine: Reports No Symptoms
Hematologic/Lymphatic: Reports No Symptoms
Psych: Reports No Symptoms
Physical Exam
Vital Signs
Vital Signs
Temp Pulse Resp BP Pulse Ox
98.0 F 53 16 146/71 96
12/07/24 14:07 12/07/24 14:15 12/07/24 16:00 12/07/24 14:07 12/07/24 14:15
Physical Exam
General: Well Developed, Well Nourished and No Apparent Distress
HEENT: NormoCephalic, Moist mucous membranes and Atraumatic
Respiratory: Clear
Cardiac: S1/S2 and Regular Rhythm; No Murmur or Rub
GI: Soft, Non Tender, Non Distended and Normal Bowel Sounds; No Organomegaly
Rectal: Deferred by Provider
Musculoskeletal: No Clubbing, No Cyanosis and No Edema
Skin: No Rash
Neuro: Facial Droop and Other (Left facial droop)
Psych: Calm
Laboratory Results
-
12/07/24 14:17
12/07/24 14:17
Laboratory Results
Total Bilirubin 0.8 mg/dl (0.2-1.3) 12/07/24 14:17
AST 26 U/L (14-36) 12/07/24 14:17
ALT 22 U/L (0-35) 12/07/24 14:17
Alkaline Phosphatase 122 U/L (38-126) 12/07/24 14:17
Data Reviewed
-
CT Scan: Report Reviewed by me
Lab Data: Labs Reviewed by me
Impression/Plan
-
# Left facial droop/dizziness rule out acute CVA vs bells palsy.
-CT head with mild acute on chronic right maxillary sinusitis. Severe white matter leukoaraiosis in the frontal and parietal lobes. Moderate bilateral frontal and parietal lobe volume loss
-EKG with A-fib
-Patient is not a TNKase candidate
-Neurology evaluated the patient in the ER
-Will obtain MRI
-Aspirin continued
-PT/OT
-Neurology consult
#Type 2 diabetes with hyperglycemia
-Blood sugar elevated in 300s
-Sliding scale continue
-Glipizide, Januvia continued
#Permanent Atrial Fibrillation
-Continue Eliquis for anticoagulation
-Continue Toprol XL for rate control
#Essential Hypertension
-Continue Toprol XL 25 mg daily
#Hyperlipidemia
-Statin continued
#Hypothyroidism
-Levothyroxine
# History of fibromyalgia
# History of spinal stenosis status postlaminectomy
-Pregabalin continued
-Tramadol continued
#Depression/anxiety
-Sertraline continued
# Iron deficiency anemia
-Ferrous sulfate continued
#GERD
-PPI continued
# History of CHF
-Furosemide continued
-Fluid restriction
-Strict OBDULIO, daily weight
# Morbid obesity
-Affects all aspects of care
DVT prophylaxis: Eliquis
Code Status
DNR
--- NOTE | 2024-12-07 17:43 | CON.NEURO ---
Neuro Assessment/Plan
Assessment
clinically her intermtitent vertigo is bppv right ear; nystagmus seen though asymptomatic. and with her habitus, i did not attempt Jim maneuver
left nasolabial flattening, unclear chronicity, in this situation brain MRI would be optional, if she has a stroke or not she stays on Aspirin Eliquis and Lipitor; does not seem like a good candidate for carotid interventions though thankfully her
CTA head/neck was clean 4 years ago
Consultation
Order
Date of Consultation: 12/07/24
Requesting Provider: Dwain Lau
Reason for Consult: stroke/TIA
Subjective/Objective
Subjective Data
Date of Service: December 07, 2024
From ED notes:
84-year-old female with a past medical history of hyperlipidemia, CKD, diabetes, A-fib on Eliquis who presents to the emergency department from [facility] after she was noted to have facial droop. Patient is a poor historian with poor
insight�she says 'I do not know why I am here, they were worried about me.' She acknowledges that they mention she had a facial droop. She says otherwise she feels fine but when pressed she complains of pain in her left hip and also complains of
some dizziness. Denies chest pain, abdominal pain, headache, acute vision changes or speech issues. I spoke to the staff [facility] report the patient chronically minimizes her symptoms. They report that 3 to 4 days ago she had a minor
mechanical fall unsure if she had any head strike but she was complaining of pain in her left hip after the fall. She was having trouble ambulating due to this pain. Since the fall she has been complaining of dizziness which is a new complaint per
staff (patient says it is not new). Today around lunchtime was noted to have a left-sided facial droop. Unclear onset. EMS called to bring her to the hospital.
to me patient reports several days of dizziness vertigo. no dizziness at rest; provoked by head movement, usually by laying down/turning head to the right. 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
anything/never find anything.' no double vision. chronic hearing loss unchanged. no weakness/numbness. mostly complaining of left leg pain below the knee
Objective Data
Vital Signs
Temp Pulse Resp BP Pulse Ox
36.7 C 53 16 146/71 96
12/07/24 14:07 12/07/24 14:15 12/07/24 16:00 12/07/24 14:07 12/07/24 14:15
Lab Results
12/07/24 14:17
12/07/24 14:17
Sodium 136 mmol/L (135-145) 12/07/24 14:17
Potassium 3.9 mmol/L (3.5-5.1) 12/07/24 14:17
BUN 17 mg/dl (7-17) 12/07/24 14:17
Glucose 303 mg/dl (70-99) H 12/07/24 14:17
Calcium 8.7 mg/dl (8.4-10.2) 12/07/24 14:17
Patient Allergies
metformin Allergy (Unknown, Verified 12/07/24 13:59)
Unknown
semaglutide Allergy (Unknown, Verified 12/07/24 13:59)
Unknown
Penicillins Allergy (Verified 12/07/24 13:59)
Anaphylaxis,vomiting, loss of breath
Physical Exam
-
AAox3 speech clear
L NL flattening
VFF, EOMI, no nystagmus with gaze fixation removed,
jarett hallpike positive to the right; rotatory nystagmus seen after ~30 seconds
full strength b/l upper ext; LLE pain limited
LLE allodynia, edema, erythema, skin thickening consistent with CRPS/fibromyalgia
Medications
-
Home Medications
�Medication �Instructions �Recorded
atorvastatin 40 mg tablet 40 mg PO QPM 30 days #30 tabs 10/29/20
metoprolol succinate 25 mg 25 mg PO DAILY 30 days #30 tabs 10/29/20
tablet,extended release 24 hr
apixaban 5 mg tablet 5 mg PO BID Blood clot 07/23/22
prevention/tx
sitagliptin phosphate 100 mg 100 mg PO DAILY Diabetes 07/23/22
tablet (Januvia)
potassium chloride 20 mEq 20 meq PO BID Supplement 30 days 07/30/22
tablet,extended #0 tabs
release(part/cryst) (Klor-Con M)
Arnicare 1 applic topical HS lower 12/07/24
bilateral legs
acetaminophen 325 mg tablet 650 mg PO Q4HPRN PRN mild 12/07/24
pain/fever
albuterol sulfate 90 mcg/actuation 1 puff inhalation R Q6HPRN PRN sob 12/07/24
aerosol inhaler
ammonium lactate 12 % lotion 1 applic topical DAILY b/l LE 12/07/24
ascorbic acid (vitamin C) 500 mg 500 mg PO DAILY 12/07/24
tablet (Vitamin C)
aspirin 81 mg chewable tablet 81 mg PO DAILY 12/07/24
bisacodyl 10 mg rectal suppository 10 mg ND [id number] PRN 3 days no 12/07/24
bm,mom ineffective
calcium carbonate 500 mg PO BID 12/07/24
famotidine 20 mg tablet (Pepcid) 20 mg PO DAILY 12/07/24
ferrous sulfate 325 mg (65 mg 325 mg PO DAILY 12/07/24
iron) tablet
furosemide 20 mg tablet 60 mg PO DAILY 12/07/24
glipizide 10 mg tablet, extended 10 mg PO DAILY 12/07/24
release 24 hr
guaifenesin 600 mg tablet, 600 mg PO [id number] PRN cough 12/07/24
extended release 12 hr (Mucinex)
insulin aspart U-100 100 unit/mL 1 sliding scale dose SC QID 12/07/24
(3 mL) subcutaneous pen (Novolog
FlexPen U-100 Insulin aspart)
levothyroxine 100 mcg tablet 100 mcg PO DAILY 12/07/24
magnesium hydroxide 400 mg/5 mL 30 ml PO HSPRN PRN constipation 12/07/24
oral suspension (Milk of Magnesia)
magnesium oxide 400 mg PO BID 12/07/24
meclizine 12.5 mg tablet 12.5 mg PO Q6HPRN PRN vertigo 12/07/24
meloxicam 7.5 mg tablet 7.5 mg PO DAILY 12/07/24
mirabegron 25 mg tablet,extended 25 mg PO QPM 12/07/24
release 24 hr (Myrbetriq)
ondansetron HCl 4 mg tablet 4 mg PO Q8HPRN PRN nausea 12/07/24
pramoxine 1 % towelette (Vagisil 1 towel topical DAILY labia 12/07/24
Anti-Itch) majora/minora
pregabalin 50 mg capsule 50 mg PO BID 12/07/24
sennosides 8.6 mg-docusate sodium 1 tab-cap PO DAILY 12/07/24
50 mg tablet (Senna-S)
sertraline 50 mg tablet 50 mg PO DAILY 12/07/24
tramadol 50 mg tablet 50 mg PO BIDPRN PRN moderate pain 12/07/24
[2024-12-07 18:00] VITALS: BP 186/104
--- NOTE | 2024-12-07 18:33 | W.PN.UPDATE ---
Update Note
Progress Note Update
This is an addendum to the H&P written by Latoya Mitchell on 12/07/2024.� Patient seen examined independently with GAS OPERATIONS ANALYST.
84-year-old female past medical history of HFpEF, atrial fibrillation on Eliquis, hypertension, diabetes, CKD, hypothyroidism, GERD, anemia, anxiety/depression, chronic lower extreme edema presenting with left facial droop noted today and drooling.�
Also with difficulty moving her left eyelid.� She has been having vertigo for past few days.� Had some headache earlier.� No other neurological deficits.� Left hip pain after a fall.
Left lower extremity is asymmetrically swollen and red and painful this intermittently gets better at times.
Vitals normal.� Blood sugar of 303.
CT head shows mild acute on chronic right maxillary sinusitis.� No other acute intracranial abnormality.
Concern for CVA.� Patient already on aspirin and Eliquis.�
Patient given dose of doxycycline for acute sinusitis.
Possibly the patient has CVA although given involvement of left upper and lower face this could also be Phelan's palsy.�Possible BPPV.� Continue Eliquis and aspirin.� Check MRI brain.� Neurology consulted.
Chronic asymmetric left lower extremity swelling, pain and redness that occurs intermittently.� Likely due to venous insufficiency/lymphedema.� Patient has been on Eliquis so doubt DVT but can consider venous ultrasound.� Does not appear like
cellulitis.
Patient with chronic sinusitis symptoms but no acute maxillary tenderness or purulent discharge or worsening of symptoms.� Hold off on doxycycline.� Would benefit from nasal nasal saline flushes/Flonase.
Patient with elevated blood sugar.� Check A1c.� Continue diabetic medications and add insulin sliding scale.
Left hip x-ray pending.
[2024-12-07] MEDS: VIBRAMYCIN 100 MG PO (18:48)
[2024-12-07 19:37] VITALS: BP 166/85; BMI 46.3
[2024-12-07] MEDS: LIPITOR 40 MG PO (20:39)
[2024-12-07] MEDS: MYRBETRIQ EXTENDED RELEASE 25 MG PO (20:39)
[2024-12-07] MEDS: KCL 20 MEQ PO (20:39)
[2024-12-07] MEDS: MAG-TAB SR 84 MG PO (20:39)
[2024-12-07] MEDS: ELIQUIS 5 MG PO (20:39)
[2024-12-07] MEDS: OSCAL CAL 500 500 MG PO (20:40)
[2024-12-07] MEDS: LYRICA 50 MG PO (20:43)
--- NOTE | 2024-12-07 20:48 | W.PN.UPDATE ---
Update Note
Progress Note Update
Reported by the nursing staff that the patient is bradycardia with hr in low 30s and pauses up to 2.4 while the patient is awake, bp 166/85. asymptomatic.
Discussed with the admitting physician, will hold daily metoprolol and cardiology consult was placed.
[2024-12-07 21:01] LABS: Glucose - Point of Care 227 mg/dl (70-99)
--- NOTE | 2024-12-07 21:02 | PTCARENOTE ---
tele monitor alarming pt's dipping to 33-39 and going back into high 40s and 50s. Pt asymptomatic and BP 166/85. Tele alarming pauses, longest pause 2.48 sec. JENNIFER Guardado notified, cardiology consulted and daily metoprolol held. Plan of care
ongoing.
[2024-12-07 23:15] VITALS: BP 146/80
[2024-12-08] VITALS (8 sets, daily range): BP systolic 130–193; BP diastolic 81–114; PULSE 62; O2SAT 98; BMI 46.1
[2024-12-08] MEDS: SYNTHROID 100 MCG PO (05:29)
[2024-12-08 06:14] LABS: HDL Cholesterol 44 mg/dl; LDL Cholesterol, Calculated 28 mg/dl; Total Cholesterol 115 mg/dl (50-199); Triglyceride 218 mg/dl (10-149); Very Low Density Lipoprotein 43 mg/dl (0-30)
[2024-12-08 07:28] LABS: Glucose - Point of Care 194 mg/dl (70-99)
[2024-12-08] MEDS: LASIX 60 MG PO (08:05)
[2024-12-08] MEDS: GLUCOTROL XL (EXTENDED RELEASE) 10 MG PO (08:05)
[2024-12-08] MEDS: MOBIC 7.5 MG PO (08:05)
[2024-12-08] MEDS: ELIQUIS 5 MG PO ×2 (08:06→21:16)
[2024-12-08] MEDS: JANUVIA 100 MG PO (08:06)
[2024-12-08] MEDS: KCL 20 MEQ PO ×2 (08:06→21:16)
[2024-12-08] MEDS: FEOSOL 325 MG PO (08:06)
[2024-12-08] MEDS: LAC HYDRIN, AM LACTIN LOTION 1 APPLIC TOPICAL (08:07)
[2024-12-08] MEDS: PEPCID 20 MG PO (08:07)
[2024-12-08] MEDS: SENOKOT-S 1 TABLET PO (08:07)
[2024-12-08] MEDS: LOW STRENGTH ASPIRIN 81 MG PO (08:07)
[2024-12-08] MEDS: ZOLOFT 50 MG PO (08:07)
[2024-12-08] MEDS: MAG-TAB SR 84 MG PO ×2 (08:07→21:16)
[2024-12-08] MEDS: DESENEX/MITRAZOL/ZEASORB 1 APPLIC TOPICAL ×2 (08:08→21:16)
[2024-12-08] MEDS: NOVOLOG FLEXPEN-MODERATE RESISTANCE 1 UNITS SC (08:09)
[2024-12-08] MEDS: OSCAL CAL 500 500 MG PO ×2 (08:10→21:16)
[2024-12-08] MEDS: LYRICA 50 MG PO ×2 (08:19→21:20)
--- NOTE | 2024-12-08 09:17 | CON.CAR ---
Addendum entered and electronically signed by Shiva Salcedo MD 12/08/24 12:27:
I saw and examined the patient.
The SHIPPING TRACK SUPERVISOR's note was reviewed and I agree with the note.
84-year-old woman with a history of diabetes, paroxysmal atrial fibrillation, chronic anticoagulation with Eliquis, retinal artery occlusion, diabetes fibromyalgia who presented with facial droop. On presentation there was concern for bradycardia.
Patient has sinus bradycardia with PACs beta-rene currently being held no long pauses or high degree AV block recorded. No complaints of syncope or near syncope. Son is at bedside states he still notices the facial asymmetry patient denies
other symptoms no shortness of breath or palpitations. ECG initially raise question of A-fib but on further inspection shows sinus rhythm with low amplitude P waves first-degree block frequent PACs.
Bradycardia. Patient with PAF. ECG shows sinus rhythm with first-degree AV block no long pauses or high degree AV block
-No indication for pacing at this time
-Would agree with holding beta-rene and monitoring heart rates
-Echocardiogram
PAF. History of PAF. Currently in sinus rhythm.
-Continue anticoagulation with Eliquis
Facial droop. Initial concern for CVA. No acute infarct reported on MRI 12/08/2024. Chronic microvascular white matter ischemic disease and right maxillary sinusitis on MRI
-Patient is already on aspirin and Eliquis and statin
-Additional assessment as directed by neurology.
DM -management directed by primary team
Hypertension-monitor.
Original Note:
Consultation
Consultation Request
Date/Time Consultation Requested: 12/07/24 2533
Date/Time Consultation Performed: 12/08/24 0915
Requesting Provider: Mitra RODRIGUEZ
Performing Provider: Malorie RODRIGUEZ for Dr. Salcedo
Reason for Consultation: bradycardia, pauses
Medical History
-
Chief Complaint: facial droop
History of Present Illness:
84 y/o female (seen by Dr. Ortiz in our office in past) with severe obesity, DM2, fibromyalgia, retinal artery occlusion, atrial fibrillation (paroxysmal) on Eliquis, mild to moderate MR, chronic LE lymphedema who is here because nursing staff
where she lives noted a facial droop. Neurology is on the case. MRI is pending. We are consulted for bradycardia/pauses. Symptom-pham, she reports some fatigue. She also reports dizzy episodes. They sound consistent with vertigo- room spinning with
head movement. She denies syncope. She is in no distress at the time of my assessment. No CP or SOB. She is seen to have sinusitis, for which she is being treated.
Past Medical History
Past Medical History: Arrhythmias, NIDDM, Valvular Disease and Other (as above)
Social History
Living: Detention
Family History
Family History: Reviewed & Not Pertinent
Allergies / Home Medications
Allergy/AdvReac Type Severity Reaction Status Date / Time
metformin Allergy Unknown Unknown Verified 12/07/24 13:59
semaglutide Allergy Unknown Unknown Verified 12/07/24 13:59
Penicillins Allergy Anaphylaxis,vomiting, Verified 12/07/24 13:59
loss of
breath
�Medication �Instructions �Recorded �Confirmed �Type
atorvastatin 40 mg tablet 40 mg PO QPM 30 days #30 tabs 10/29/20 12/07/24 Rx
metoprolol succinate 25 mg 25 mg PO DAILY 30 days #30 tabs 10/29/20 12/07/24 Rx
tablet,extended release 24 hr
apixaban 5 mg tablet 5 mg PO BID Blood clot 07/23/22 12/07/24 History
prevention/tx
sitagliptin phosphate 100 mg 100 mg PO DAILY Diabetes 07/23/22 12/07/24 History
tablet (Januvia)
potassium chloride 20 mEq 20 meq PO BID Supplement 30 days 07/30/22 12/07/24 Rx
tablet,extended #0 tabs
release(part/cryst) (Klor-Con M)
Arnicare 1 applic topical HS lower 12/07/24 12/07/24 History
bilateral legs
acetaminophen 325 mg tablet 650 mg PO Q4HPRN PRN mild 12/07/24 12/07/24 History
pain/fever
albuterol sulfate 90 mcg/actuation 1 puff inhalation R Q6HPRN PRN sob 12/07/24 12/07/24 History
aerosol inhaler
ammonium lactate 12 % lotion 1 applic topical DAILY b/l LE 12/07/24 12/07/24 History
ascorbic acid (vitamin C) 500 mg 500 mg PO DAILY 12/07/24 12/07/24 History
tablet (Vitamin C)
aspirin 81 mg chewable tablet 81 mg PO DAILY 12/07/24 12/07/24 History
bisacodyl 10 mg rectal suppository 10 mg MS [id number] PRN 3 days no 12/07/24 12/07/24 History
bm,mom ineffective
calcium carbonate 500 mg PO BID 12/07/24 12/07/24 History
famotidine 20 mg tablet (Pepcid) 20 mg PO DAILY 12/07/24 12/07/24 History
ferrous sulfate 325 mg (65 mg 325 mg PO DAILY 12/07/24 12/07/24 History
iron) tablet
furosemide 20 mg tablet 60 mg PO DAILY 12/07/24 12/07/24 History
glipizide 10 mg tablet, extended 10 mg PO DAILY 12/07/24 12/07/24 History
release 24 hr
guaifenesin 600 mg tablet, 600 mg PO [id number] PRN cough 12/07/24 12/07/24 History
extended release 12 hr (Mucinex)
insulin aspart U-100 100 unit/mL 1 sliding scale dose SC QID 12/07/24 12/07/24 History
(3 mL) subcutaneous pen (Novolog
FlexPen U-100 Insulin aspart)
levothyroxine 100 mcg tablet 100 mcg PO DAILY 12/07/24 12/07/24 History
magnesium hydroxide 400 mg/5 mL 30 ml PO HSPRN PRN constipation 12/07/24 12/07/24 History
oral suspension (Milk of Magnesia)
magnesium oxide 400 mg PO BID 12/07/24 12/07/24 History
meclizine 12.5 mg tablet 12.5 mg PO Q6HPRN PRN vertigo 12/07/24 12/07/24 History
meloxicam 7.5 mg tablet 7.5 mg PO DAILY 12/07/24 12/07/24 History
mirabegron 25 mg tablet,extended 25 mg PO QPM 12/07/24 12/07/24 History
release 24 hr (Myrbetriq)
ondansetron HCl 4 mg tablet 4 mg PO Q8HPRN PRN nausea 12/07/24 12/07/24 History
pramoxine 1 % towelette (Vagisil 1 towel topical DAILY labia 12/07/24 12/07/24 History
Anti-Itch) majora/minora
pregabalin 50 mg capsule 50 mg PO BID 12/07/24 12/07/24 History
sennosides 8.6 mg-docusate sodium 1 tab-cap PO DAILY 12/07/24 12/07/24 History
50 mg tablet (Senna-S)
sertraline 50 mg tablet 50 mg PO DAILY 12/07/24 12/07/24 History
tramadol 50 mg tablet 50 mg PO BIDPRN PRN moderate pain 12/07/24 12/07/24 History
Review of Systems
-
History Source: Patient
All other systems: Negative unless noted
Constitutional: Fatigue
Neurological: Dizzy and Other (facial droop)
Physical Exam
Vital Signs
Temp Pulse Resp BP Pulse Ox
97.9 F 60 15 151/99 97
12/08/24 07:22 12/08/24 07:22 12/08/24 07:22 12/08/24 07:22 12/08/24 07:22
Lab Results
12/07/24 14:17
12/07/24 14:17
Physical Exam
General: Well Developed, Well Nourished and No Apparent Distress
HEENT: Normocephalic and Anicteric
Respiratory: Clear and Non Labored Respirations
Cardiac: Regular Rhythm
Musculoskeletal: Edema (mild BLE edema)
Skin: Warm and Dry
Neuro: Awake, Alert and Oriented
Psych: Calm
Impression / Plan
-
PAF:
-stable in SR
-on Eliquis for OAC
-I reviewed EKG with EP and actually shows SR with PAC's. She has a first degree AVB, but PAC's are conducting at different intervals. This is consistent with findings on telemetry as well on my review. We were consulted for bradycardia and pauses.
Fortunately, I see no long pauses. I also see no severe bradycardia. I do see her occasionally go as low as 40's overnight. Her dizziness sounds like vertigo and does not seem to be related to bradycardia. Monitor rates off BB.
Facial droop:
-ruling out stroke with imaging- this diagnosis is threat to bodily function
-neurology is following and MRI is pending
HTN:
-elevated here
-may need to add alternative agent, follow
Sinusitis:
-management per primary team
Data Reviewed
-
EKG: Tracing Personally Visualized and interpreted (AFIB 59 BPM)
CT Scan: Report Reviewed by me (Head CT: MILD ACUTE on CHRONIC RIGHT MAXILLARY SINUSITIS. SEVERE WHITE MATTER LEUKOARAIOSIS in the frontal and parietal lobes. Moderate bilateral frontal and parietal lobe volume loss. )
Medical Tests (Nuc Med, Echo etc): Report Reviewed by me (Echo 07/24/22: Technically difficult study - .With poor image quality Definity used. Normal left ventricular function. Left ventricular ejection fraction is 55-60%. Wall motion analysis is
limited by the image quality. Aortic sclerosis. Compared to the previous echo no MR is seen . Differences may b)
Labs: Labs Reviewed by me
[2024-12-08] MEDS: PROTONIX 40 MG PO (10:50)
--- NOTE | 2024-12-08 11:15 | W.PN.HOSP.TC ---
Addendum entered and electronically signed by Rob Haro MD 12/08/24 15:17:
Spoke to patient's son. He states that patient does not have sleep apnea and she has not had a sleep study in the past 10 years.
Discussed about long-term effects of Mobic. GI as well as renal complications. I will change it to as needed. Advised to discuss with PCP to see if this can be stopped.
Also discussed about insulin-will go ahead and start Lantus and scheduled doses of NovoLog and stop glipizide
Discussed about starting losartan in the place of metoprolol
Addendum entered and electronically signed by Rob Haro MD 12/08/24 15:01:
Seen earlier today. Late documentation
I saw and evaluated the patient. I reviewed the resident�s note and agree with findings and plan as documented in the resident�s note except for changes in my documentation
84-year-old male with left facial droop.
CT of the head with acute on chronic right maxillary sinusitis. Severe white matter leukoaraiosis in the frontal and parietal lobes. Moderate bilateral frontal and parietal lobe volume loss.
On examination patient is awake alert. Was sitting in a chair
Cardiovascular system S1-S2
Chest clear to auscultation
Abdomen soft and nontender
Neuro exam-left LMN facial palsy
# Left facial droop with dizziness
Ruled out CVA
This is Phelan's palsy
Patient does report that she had some earache a few days ago on the left side. Also had severe vertigo
EKG shows atrial fibrillation
MRI ordered
Aspirin continued, continue statin
Meclizine as needed for vertigo
Seen by who feels that patient needs a video swallow.
Steroids started for Phelan's palsy
# Bradycardia-Hold metoprolol. Discussed with cardiology. Will not restart
# Permanent atrial fibrillation-on Eliquis for anticoagulation. Toprol stopped
# Essential hypertension-Hold Toprol-XL. Will start losartan after discussion with son
# Diabetes type 2-hemoglobin A1c- 10.5 . Blood sugars have been elevated. After discussion with son, we will likely start insulin Lantus and sliding scale. With steroids blood sugars will run even higher
# History of CHF-continue Lasix, hold Toprol. Intake output charting and daily weights
# Hyperlipidemia-continue statin
# Hypothyroidism-continue Synthroid
# Deficiency anemia-continue ferrous sulfate
# Chronic asymmetric left lower extremity swelling with pain and redness
# History of fibromyalgia/spinal stenosis with history of laminectomy-continue tramadol and pregabalin
# Depression and anxiety-continue sertraline
# Sleep apnea-noncompliant with CPAP
# Obesity with a BMI 46
# Ex-smoker
# DVT prophylaxis-Eliquis
# DNR
Discussed with neurology
Discussed with son in detail at bedside
Discussed with nursing
D/W Case management
D/W Cardiology
Time spent over 50 min
Called son again to discuss about insulin. Left a message for call back
Original Note:
Today's Communication/Plan
-
Await evaluation by PT/OT, await evaluation by cardiology regarding bradycardia. Check orthostatic vitals
Assessment / Plan
Assessment / Plan
Assessment:
84-year-old female with past medical history of hyperlipidemia, CKD, diabetes, A-fib, CHF presented to the emergency department from her facility at [facility] where she was noted to have facial droop by her family. She states that she has
been having dizziness coupled with headaches for past few days. Patient had a recent fall as well where she landed on her left hip. X-ray was done in the ER which did not show any acute fracture. Her main concern today was feeling fatigue and she
does not know why she was brought to the hospital as she says her symptoms are not too bad. Patient underwent CT scan of the head for workup of any potential stroke. The scan showed some mild acute chronic right-sided maxillary sinusitis and
severe white matter leukoaraiosis in the frontal and parietal lobes. Neurology was consulted and was recommended that patient should get MRI brain if needed. Patient underwent MRI and is currently on treatment for her A-fib with Eliquis. Patient
was found to be bradycardic and her Toprol was held until her heart rate improved. Brain MRI showed no acute infarcts but punctate chronic lacunar infarcts in the left thalamus.
Head CT (12/07/2024):
1. MILD ACUTE on CHRONIC RIGHT MAXILLARY SINUSITIS.
2. SEVERE WHITE MATTER LEUKOARAIOSIS in the frontal and parietal lobes.
3. Moderate bilateral frontal and parietal lobe volume loss.
CR Hip - LT w/wo Pel 2-3 Vw (12/07/2024):
1. Severe discogenic degenerative disease and facet joint arthrosis at L4/L5.
2. Mild bilateral osteoarthritis of the hips.
3. Diffuse bone demineralization.
Brain MRI (12/08/2024):
No acute infarct. Punctate chronic lacunar infarct in left thalamus.
Chronic microvascular white matter ischemic disease. Atrophy. Right maxillary sinusitis.
Plan:
# Left facial droop and dizziness secondary to possible CVA/Phelan's palsy
-CT head as above, no acute infarct or bleed noticed
-EKG with A-fib
-Patient not given TNK due to not being TNK candidate
-Neurology evaluation recommended possible MRI
-MRI obtained as above, did not show any acute infarcts.
-Aspirin continued
-PT/OT
-Dizziness may be due to orthostatic hypotension, will measure orthostatic vitals
#Type 2 diabetes with hyperglycemia
-Blood sugar elevated in the ED
-Insulin sliding scale to continue as needed
-Glipizide, Januvia continued
#Permanent Atrial Fibrillation
-Continue Eliquis for anticoagulation
-Toprol held due to bradycardia
-Cardiology consulted input appreciated
#Acute Sinusitis
-Seen on CT Head and MRI
-Patient was started on Doxycycline but was discontinued
-Will continue treatment as needed
#Essential Hypertension
-Held due to bradycardia
-Cardiology consulted input appreciated
#Hyperlipidemia
-Statin continued
#Hypothyroidism
-Levothyroxine
# History of fibromyalgia
# History of spinal stenosis status postlaminectomy
-Pregabalin continued
-Tramadol continued
#Depression/anxiety
-Sertraline continued
# Iron deficiency anemia
-Ferrous sulfate continued
#GERD
-PPI continued
#History of CHF
-Furosemide continued
-Fluid restriction
-Strict OBDULIO, daily weight
DVT prophylaxis: Eliquis
DNR
Anticipated Discharge: Within 24 hours
Subjective/Interval History
-
Date of Service: December 08, 2024
Patient says that she has been feeling okay just a bit weak and fatigued. Denies any facial drooping or any other symptoms that she came in with. Says she has been dizzy but right now she has no dizziness. Says she has been feeling fine and does
not know why she is here still
Objective Data
-
Vital Signs:
Vital Signs
Temp Pulse Resp BP Pulse Ox
97.8 F 74 17 167/97 96
12/08/24 11:14 12/08/24 11:14 12/08/24 11:14 12/08/24 11:14 12/08/24 11:14
Review of Systems
-
History Source: Patient
Constitutional: Reports Fatigue and Weakness; Denies Fever or Chills
EENT: Denies Eye Pain or Decreased Vision
Respiratory: Denies Cough or Trouble Breathing
Cardiac: Denies Chest Pain, Palpitations or Syncope
Abdomen/GI: Denies Abdominal Pain, Nausea, Vomiting or Diarrhea
Musculoskeletal: Reports No Symptoms
Skin: Reports No Symptoms
Neuro: Denies Dizzy, Headache, Weakness, Numbness or Lightheadedness
Physical Exam
-
General: No Apparent Distress, Comfortable and Conversant
HEENT: Normocephalic and Atraumatic
Respiratory: Clear to Auscultation and Non Labored Respirations
Cardiac: Regular Rhythm, S1/S2 and Irregular Rhythm (A-fib)
GI: Soft, Nontender and Nondistended
Musculoskeletal: No Clubbing, No Cyanosis and No Edema
Skin: Warm
Neuro: Awake, Alert, Oriented, No Motor Deficits and No Sensory Deficits; Negative Facial Droop
Psych: Calm
Data Reviewed
-
CT Scan: Report Reviewed by me, Discussed with Physician and Discussed with Patient
Labs: Labs Reviewed by me, Discussed with Physician, Discussed with Patient and Discussed with Family
[2024-12-08 12:33] LABS: Glucose - Point of Care 267 mg/dl (70-99)
--- NOTE | 2024-12-08 12:34 | PTOTSP ---
ST Acute Care Evaluation
Pt currently presents with clinical signs of mild to moderate oropharyngeal dysphagia characterized by reduced labial strength/sensation on L side resulting in reduced labial seal around feeding devices and reduced sucking strength, prolonged
mastication and bolus formation of solids, as well as intermittent wet vocal quality and throat clearing with ingestion of thin liquids that is suspicious for airway invasion.
Recommendations:
- Continue with REGULAR SOLIDS and THIN LIQUIDS with meds as tolerated.
- Aspiration and reflux precautions: HOB upright for all PO intake; small bites/sips; slow intake rate; alternate solids and liquids; use R (stronger) side for eating/drinking; when presenting with a wet vocal quality, prompt pt to produce a
[cough/throat clear + swallow] sequence; d/c PO intake if pt is in respiratory distress.
- Video fluoroscopic swallow study (VFSS) for more information regarding airway protection.
- [employer] to provide additional recommendations following completion of VFSS.
--- NOTE | 2024-12-08 12:53 | CM ---
Addendum entered by Flaquita Garg 12/08/24 14:32:
[facility]
Report # : [phone]
Fax #: [phone]
Addendum entered by Flaquita Garg 12/08/24 13:29:
KESSLER notice explained; form signed @ 1315
Original Note:
Initial assessment completed at bedside
Pharmacy: [facility]
Patient resides at [facility]; assist of one with ADLs; self propels in wheelchair for mobility; unable to ambulate; meals delivered to room; feeds self
Ambulance will be needed for transport
Plan: Return to [facility] when stable
[2024-12-08] MEDS: NOVOLOG FLEXPEN-MODERATE RESISTANCE 5 UNITS SC (12:55)
--- NOTE | 2024-12-08 12:55 | W.PN.NEURO.1 ---
Today's Communication / Plan
-
bells palsy start prednisone
Neuro Assessment/Plan
Assessment
clinically her intermtitent vertigo is bppv right ear; nystagmus seen though asymptomatic. and with her habitus, i did not attempt Jim maneuver
Phelan's palsy - prednisone 50 x5 days. can stop early if she gets better given diabetes. refresh gel prn
Subjective/Objective
Subjective Data
Date of Service: December 08, 2024
sitting up in chair
can't close her left eye
Objective Data
Vital Signs
Temp Pulse Resp BP Pulse Ox
36.6 C 74 17 167/97 96
12/08/24 11:14 12/08/24 11:14 12/08/24 11:14 12/08/24 11:14 12/08/24 11:14
Lab Results
12/07/24 14:17
12/07/24 14:17
Sodium 136 mmol/L (135-145) 12/07/24 14:17
Potassium 3.9 mmol/L (3.5-5.1) 12/07/24 14:17
BUN 17 mg/dl (7-17) 12/07/24 14:17
Glucose 303 mg/dl (70-99) H 12/07/24 14:17
Calcium 8.7 mg/dl (8.4-10.2) 12/07/24 14:17
LDL Cholesterol, Calc 28 mg/dl 12/08/24 05:24
Patient Allergies
metformin Allergy (Unknown, Verified 12/07/24 13:59)
Unknown
semaglutide Allergy (Unknown, Verified 12/07/24 13:59)
Unknown
Penicillins Allergy (Verified 12/07/24 13:59)
Anaphylaxis,vomiting, loss of breath
Physical Exam
-
AAox3 speech clear
L NL flattening, unable to close left eye
VFF, EOMI, no nystagmus with gaze fixation removed,
jarett hallpike positive to the right; rotatory nystagmus seen after ~30 seconds
full strength b/l upper ext; LLE pain limited
[2024-12-08] MEDS: DELTASONE 50 MG PO (13:54)
--- NOTE | 2024-12-08 15:13 | RESPNOTE ---
Interviewed patient regarding use of nocturnal CPAP at home as orders are entered for patient to use own equipment. Patient states she does not wear CPAP nocturnally at home and does not want to wear in hospital.
[2024-12-08] MEDS: COZAAR 25 MG PO (17:16)
[2024-12-08] MEDS: MYRBETRIQ EXTENDED RELEASE 25 MG PO (17:16)
[2024-12-08] MEDS: LIPITOR 40 MG PO (17:16)
[2024-12-08 17:22] LABS: Glucose - Point of Care 226 mg/dl (70-99)
[2024-12-08] MEDS: NOVOLOG FLEXPEN 4 UNITS SC (17:25)
[2024-12-08] MEDS: NOVOLOG FLEXPEN-MODERATE RESISTANCE 3 UNITS SC (17:25)
[2024-12-08 22:37] LABS: Glucose - Point of Care 279 mg/dl (70-99)
[2024-12-08] MEDS: LANTUS 0.1 UNITS SC (22:52)
[2024-12-09] VITALS (7 sets, daily range): BP systolic 137–181; BP diastolic 70–92; PULSE 72; O2SAT 96; BMI 45.4
[2024-12-09 06:00] LABS: Hematocrit 42.3 % (37.0-47.0); Hemoglobin 14.2 g/dL (12.0-16.0); Mean Corp Hgb Conc. 33.6 g/dL (33.0-37.0); Mean Corpuscular Hgb 31.6 pg (27.0-31.0); Mean Corpuscular Volume 94.2 fL (81.0-99.0); Mean Platelet Volume 10.5 fL (7.4-10.4); Platelet Count 158 10^3/uL (130-400); Red Blood Cell Count 4.49 10^6/uL (4.20-5.40); Red Cell Dist. Width 13.5 % (11.5-14.5); White Blood Cell Count 9.9 10^3/uL (4.8-10.8)
[2024-12-09] MEDS: SYNTHROID 100 MCG PO (06:13)
[2024-12-09 06:23] LABS: Blood Urea Nitrogen 17 mg/dl (7-17); Calcium 9.3 mg/dl (8.4-10.2); Carbon Dioxide 35 mmol/L (22-30); Chloride 93 mmol/L (98-107); Estimated Creatinine Clearance 64 ml/min; Glucose 228 mg/dl (70-99); Potassium 3.9 mmol/L (3.5-5.1); Sodium 137 mmol/L (135-145); eGFR > 60.00
--- NOTE | 2024-12-09 07:05 | W.PN.HOSP.TC ---
Addendum entered and electronically signed by Rob Haro MD 12/09/24 14:40:
Seen earlier today. Late documentation
I saw and evaluated the patient. I reviewed the resident�s note and agree with findings and plan as documented in the resident�s note except for changes in my documentation
84-year-old male with left facial droop.
CT of the head with acute on chronic right maxillary sinusitis. Severe white matter leukoaraiosis in the frontal and parietal lobes. Moderate bilateral frontal and parietal lobe volume loss.
On examination patient is awake alert.
Cardiovascular system S1-S2 appreciated
Chest clear to auscultation
Abdomen soft and nontender
Neuro exam-left LMN facial palsy, looks better
# Left facial droop with dizziness
Ruled out CVA
This is Phelan's palsy
Patient does report that she had some earache a few days ago on the left side. Also had severe vertigo
EKG shows atrial fibrillation
MRI no CVA
Aspirin continued, continue statin
Meclizine as needed for vertigo
Video swallow unremarkable
Steroids started for Phelan's palsy-better
# Bradycardia-Hold metoprolol. Discussed with cardiology. Will not restart
# Permanent atrial fibrillation-on Eliquis for anticoagulation. Toprol stopped
# Essential hypertension-Hold Toprol-XL. Losartan started
# Diabetes type 2-hemoglobin A1c- 10.5 . Blood sugars have been elevated. Lantus and NovoLog started. We will leave Duglas for now until she completes steroids. After that this can come off.
# History of CHF-continue Lasix, hold Toprol. Intake output charting and daily weights
# Hyperlipidemia-continue statin
# Hypothyroidism-continue Synthroid
# Deficiency anemia-continue ferrous sulfate
# Chronic asymmetric left lower extremity swelling with pain and redness
# History of fibromyalgia/spinal stenosis with history of laminectomy-continue tramadol and pregabalin
# Depression and anxiety-continue sertraline
# Obesity with a BMI 46
# Ex-smoker
# DVT prophylaxis-Eliquis
# DNR
Discussed with neurology
D/W Cardiology
Discussed with nursing
D/W Case management
I called the son-went to message
Dr. Villalta was able to speak to son this morning as was Dr. Young
More than 30 minutes spent in discharge including
Final examination of the patient
Summarizing hospital stay
Instructions for continuing care to all relevant caregivers
Preparation of discharge records, prescriptions, and referral forms
Total time spent (in minutes): 39 min
Original Note:
Today's Communication/Plan
-
Continue steroid therapy and monitor any improvement in Phelan's palsy
Assessment / Plan
Assessment / Plan
Assessment:
84-year-old female with past medical history of hyperlipidemia, CKD, diabetes, A-fib, CHF presented to the emergency department from her facility at [facility] where she was noted to have facial droop by her family. She states that she has
been having dizziness coupled with headaches for past few days. Patient had a recent fall as well where she landed on her left hip. X-ray was done in the ER which did not show any acute fracture. Her main concern today was feeling fatigue and she
does not know why she was brought to the hospital as she says her symptoms are not too bad. Patient underwent CT scan of the head for workup of any potential stroke. The scan showed some mild acute chronic right-sided maxillary sinusitis and
severe white matter leukoaraiosis in the frontal and parietal lobes. Neurology was consulted and was recommended that patient should get MRI brain if needed. Patient underwent MRI and is currently on treatment for her A-fib with Eliquis. Patient
was found to be bradycardic and her Toprol was held until her heart rate improved. Brain MRI showed no acute infarcts but punctate chronic lacunar infarcts in the left thalamus. Patient was started on steroid treatment for suppose a Phelan's palsy.
Symptoms have improved since starting steroids.
Head CT (12/07/2024):
1. MILD ACUTE on CHRONIC RIGHT MAXILLARY SINUSITIS.
2. SEVERE WHITE MATTER LEUKOARAIOSIS in the frontal and parietal lobes.
3. Moderate bilateral frontal and parietal lobe volume loss.
CR Hip - LT w/wo Pel 2-3 Vw (12/07/2024):
1. Severe discogenic degenerative disease and facet joint arthrosis at L4/L5.
2. Mild bilateral osteoarthritis of the hips.
3. Diffuse bone demineralization.
Brain MRI (12/08/2024):
No acute infarct. Punctate chronic lacunar infarct in left thalamus.
Chronic microvascular white matter ischemic disease. Atrophy. Right maxillary sinusitis.
Plan:
# Left facial droop and dizziness secondary to possible CVA/Phelan's palsy
-CT head as above, no acute infarct or bleed noticed
-EKG with A-fib
-Patient not given TNK due to not being TNK candidate
-Neurology evaluation recommended possible MRI
-MRI obtained as above, did not show any acute infarcts.
-Aspirin continued
-PT/OT
-Patient started on prednisone 50 for 5 days by neuro for her likely Phelan's palsy
-Symptoms have improved with start of prednisone
-Meclizine as needed for vertigo
-Seen by speech who recommended regular solids and thin liquids along with aspiration reflux precautions
# Bilateral temporal headaches
-Acetaminophen as needed for now
-Further management if persistent
-Continue monitoring
#Type 2 diabetes with hyperglycemia
-Blood sugar elevated in the ED
-Insulin sliding scale to continue as needed
-Glipizide, Januvia continued
-Blood sugars above 200 but on steroid therapy
-Continue monitoring
#Permanent Atrial Fibrillation
-Continue Eliquis for anticoagulation
-Toprol held due to bradycardia
-Cardiology consulted input appreciated
#Acute Sinusitis
-Seen on CT Head and MRI
-Patient was started on Doxycycline but was discontinued
-Will continue treatment as needed
#Essential Hypertension
-Held due to bradycardia
-Cardiology consulted input appreciated
#Hyperlipidemia
-Statin continued
#Hypothyroidism
-Levothyroxine
# History of fibromyalgia
# History of spinal stenosis status postlaminectomy
-Pregabalin continued
-Tramadol continued
#Depression/anxiety
-Sertraline continued
# Iron deficiency anemia
-Ferrous sulfate continued
#GERD
-PPI continued
#History of CHF
-Furosemide continued
-Fluid restriction
-Strict OBDULIO, daily weight
DVT prophylaxis: Eliquis
DNR
Anticipated Discharge: Within 24 hours
Subjective/Interval History
-
Date of Service: December 09, 2024
Patient seen with son in room along with Dr. Young from neurology. Patient has been feeling well and has noticed that her facial droop has much improved from yesterday after starting of steroids. Patient says that her only concern is that she has
some blurry vision as she woke up this morning which has improved but she also has bilateral temporal headaches as well.
Objective Data
-
Labs:
Laboratory Results
12/09/24
05:25
WBC 9.9
Hgb 14.2
Hct 42.3
Plt Count 158
Sodium 137
Potassium 3.9
Chloride 93 L
Carbon Dioxide 35 H
BUN 17
Creatinine 0.8
Glucose 228 H
Calcium 9.3
Vital Signs:
Vital Signs
Temp Pulse Resp BP Pulse Ox
98.1 F 74 18 150/83 93
12/09/24 03:55 12/09/24 03:55 12/09/24 03:55 12/09/24 03:55 12/09/24 03:55
I&O
12/08/24 12/09/24 12/10/24
06:59 06:59 06:59
Intake Total 960 / 960
Output Total 1600 / 1600
Balance -640 / -640
Review of Systems
-
History Source: Patient
Constitutional: Reports Fatigue and Weakness; Denies Fever or Chills
EENT: Denies Eye Pain or Decreased Vision
Respiratory: Denies Cough or Trouble Breathing
Cardiac: Denies Chest Pain, Palpitations or Syncope
Abdomen/GI: Denies Abdominal Pain, Nausea, Vomiting or Diarrhea
Musculoskeletal: Reports No Symptoms
Skin: Reports No Symptoms
Neuro: Reports Headache; Denies Dizzy, Weakness, Numbness or Lightheadedness
Physical Exam
-
General: No Apparent Distress, Comfortable and Conversant
HEENT: Normocephalic and Atraumatic
Respiratory: Clear to Auscultation and Non Labored Respirations
Cardiac: S1/S2 and Irregular Rhythm (A-fib)
GI: Soft, Nontender and Nondistended
Musculoskeletal: No Clubbing, No Cyanosis and No Edema
Skin: Warm
Neuro: Awake, Alert, Oriented, No Motor Deficits (Bilateral upper extremities full strength intact) and Facial Droop (Left-sided facial droop has much improved from yesterday)
Psych: Calm
Data Reviewed
-
MRI: Discussed with Physician, Discussed with Patient and Discussed with Family
Labs: Labs Reviewed by me, Discussed with Physician, Discussed with Patient and Discussed with Family
[2024-12-09 07:43] LABS: Glucose - Point of Care 178 mg/dl (70-99)
[2024-12-09] MEDS: NOVOLOG FLEXPEN-MODERATE RESISTANCE 1 UNITS SC (08:56)
[2024-12-09] MEDS: NOVOLOG FLEXPEN 4 UNITS SC (08:57)
[2024-12-09] MEDS: JANUVIA 100 MG PO (08:58)
[2024-12-09] MEDS: FEOSOL 325 MG PO (08:58)
[2024-12-09] MEDS: LASIX 60 MG PO (08:58)
[2024-12-09] MEDS: PROTONIX 40 MG PO (08:59)
[2024-12-09] MEDS: MAG-TAB SR 84 MG PO ×2 (08:59→22:14)
[2024-12-09] MEDS: ELIQUIS 5 MG PO ×2 (08:59→22:15)
[2024-12-09] MEDS: SENOKOT-S 1 TABLET PO (08:59)
[2024-12-09] MEDS: DELTASONE 50 MG PO (08:59)
[2024-12-09] MEDS: LYRICA 50 MG PO ×2 (09:00→22:14)
[2024-12-09] MEDS: ZOLOFT 50 MG PO (09:00)
[2024-12-09] MEDS: COZAAR 25 MG PO (09:00)
[2024-12-09] MEDS: OSCAL CAL 500 500 MG PO ×2 (09:00→22:14)
[2024-12-09] MEDS: PEPCID 20 MG PO (09:00)
[2024-12-09] MEDS: LOW STRENGTH ASPIRIN 81 MG PO (09:00)
[2024-12-09] MEDS: KCL 20 MEQ PO ×2 (09:00→22:14)
[2024-12-09] MEDS: LAC HYDRIN, AM LACTIN LOTION 1 APPLIC TOPICAL (09:03)
[2024-12-09] MEDS: DESENEX/MITRAZOL/ZEASORB 1 APPLIC TOPICAL ×2 (09:03→22:15)
--- NOTE | 2024-12-09 10:23 | W.PN.CD ---
Today's Communication / Plan
-
remain off of Toprol XL
continue eliquis
please call us with additional questions
Impression / Plan
-
Paroxysmal A fib:
-stable in sinus with PVC's
-on Eliquis 5mg bid for OAC
Bradycardia
-improved off of Toprol XL
-remain off of Toprol XL
Facial droop: suspected Phelan's palsy
-per neurology
HTN:
-titrate losartan based on BP trend
Physical Exam
Vital Signs/Labs
Vital Signs
Temp Pulse Resp BP Pulse Ox
98.2 F 56 17 157/81 96
12/09/24 07:33 12/09/24 07:33 12/09/24 07:33 12/09/24 07:33 12/09/24 07:33
12/08/24 12/09/24 12/10/24
06:59 06:59 06:59
Actual Weight 114.169 kg 112.4 kg
12/09/24 05:25
12/09/24 05:25
Triglycerides 218 mg/dl (10-149) H 12/08/24 05:24
LDL Cholesterol, Calc 28 mg/dl 12/08/24 05:24
VLDL Cholesterol, Calc 43 mg/dl (0-30) H 12/08/24 05:24
HDL Cholesterol 44 mg/dl 12/08/24 05:24
Physical Exam
Constitutional: No acute distress and Comfortable
EENT: Moist mucous membranes
Cardiovascular: Rhythm & rate is regular, Pedal edema is absent, JVD pressure is normal and Systolic murmur absent
Respiratory: Respiratory effort normal and Lungs clear to auscul.
Neuro/Psych: AO x 3
Data Reviewed
-
Date of Service: December 09, 2024
EKG: Other (Tele: SR, PVC's couplets, triplets)
Labs: Labs Reviewed by me
[2024-12-09 12:06] LABS: Glucose - Point of Care 234 mg/dl (70-99)
[2024-12-09] MEDS: NOVOLOG FLEXPEN-MODERATE RESISTANCE 3 UNITS SC (12:58)
[2024-12-09] MEDS: NOVOLOG FLEXPEN 6 UNITS SC (12:59)
--- NOTE | 2024-12-09 15:30 | PTOTSP ---
Videofluoroscopic swallow study
Summary: Patient presents with mild oral stage and functional pharyngeal stage of swallowing. No aspiration occurred. See patient care note for details.
Recommend:
1. Regular, Thin Liquids
2. Strategies: upright to 90 degrees, small bites/sips, slow intake rate, place utensil on right side, use sip of liquid or clean digital/lingual sweep for oral clearance
3. Medications as best tolerated
4. Follow up briefly x1 for carryover of strategies and education as appropriate.
[2024-12-09] MEDS: TYLENOL 650 MG PO (16:02)
[2024-12-09 16:46] LABS: Glucose - Point of Care 547 mg/dl (70-99)
[2024-12-09] MEDS: NOVOLOG FLEXPEN SC (17:04)
[2024-12-09] MEDS: NOVOLOG FLEXPEN-MODERATE RESISTANCE SC (17:07)
[2024-12-09] MEDS: NOVOLOG FLEXPEN 17 UNITS SC (17:10)
[2024-12-09 17:36] LABS: Glucose 526 mg/dl (70-99)
--- NOTE | 2024-12-09 18:17 | CM ---
Spoke with Benji she accepted pt back under superintendent terminal status.
Referral in care port.
Spoke with Christiano son he is aware of dcf and agrees with dc back to [facility].
Medical nec form completed.
Dc cancelled for today .
Albert
Report [phone]

PLAN Return to [facility]
[2024-12-09] MEDS: MYRBETRIQ EXTENDED RELEASE 25 MG PO (18:20)
[2024-12-09] MEDS: LIPITOR 40 MG PO (18:20)
[2024-12-09 19:36] LABS: Glucose - Point of Care 409 mg/dl (70-99)
[2024-12-09 20:40] LABS: Glucose 400 mg/dl (70-99)
[2024-12-09] MEDS: NOVOLOG FLEXPEN 11 UNITS SC (22:15)
[2024-12-09] MEDS: LANTUS 0.12 UNITS SC (22:15)
[2024-12-10 00:26] LABS: Glucose - Point of Care 297 mg/dl (70-99)
--- NOTE | 2024-12-10 00:40 | PTCARENOTE ---
Patient's repeat blood glucose from prior high reading during dayshift resulted RR HI on monitor, later with reading of 409. Stat glucose lab obtained and resulted 400. Patient has been having elevated blood sugars today, which has put her discharge
on hold at this time. JENNIFER Manriquez notified of lab result. One time dose 11 units NovoLog ordered and provided to patient. 2 hour post repeat resulted 297. Patient is asleep in bed, appears to be comfortable, no complaints at this time. Will continue
to monitor.
[2024-12-10 03:20] VITALS: BP 160/78
[2024-12-10 06:00] VITALS: BMI 45.6
[2024-12-10] MEDS: SYNTHROID 100 MCG PO (06:06)
[2024-12-10 08:15] LABS: Glucose - Point of Care 144 mg/dl (70-99)
[2024-12-10 08:19] VITALS: BP 150/82
[2024-12-10] MEDS: NOVOLOG FLEXPEN-MODERATE RESISTANCE SC ×2 (08:39→13:28)
[2024-12-10] MEDS: JANUVIA 100 MG PO (08:43)
[2024-12-10] MEDS: OSCAL CAL 500 500 MG PO (08:43)
[2024-12-10] MEDS: PROTONIX 40 MG PO (08:43)
[2024-12-10] MEDS: ELIQUIS 5 MG PO (08:43)
[2024-12-10] MEDS: PEPCID 20 MG PO (08:43)
[2024-12-10] MEDS: LASIX 60 MG PO (08:43)
[2024-12-10] MEDS: DELTASONE 50 MG PO (08:43)
[2024-12-10] MEDS: LOW STRENGTH ASPIRIN 81 MG PO (08:43)
[2024-12-10] MEDS: SENOKOT-S 1 TABLET PO (08:43)
[2024-12-10] MEDS: ZOLOFT 50 MG PO (08:44)
[2024-12-10] MEDS: COZAAR 25 MG PO (08:44)
[2024-12-10] MEDS: KCL 20 MEQ PO (08:44)
[2024-12-10] MEDS: FEOSOL 325 MG PO (08:44)
[2024-12-10] MEDS: DESENEX/MITRAZOL/ZEASORB 1 APPLIC TOPICAL (08:50)
[2024-12-10] MEDS: LAC HYDRIN, AM LACTIN LOTION 1 APPLIC TOPICAL (08:50)
[2024-12-10] MEDS: NOVOLOG FLEXPEN 8 UNITS SC ×2 (08:51→13:50)
[2024-12-10] MEDS: MAG-TAB SR 84 MG PO (09:07)
[2024-12-10] MEDS: LYRICA 50 MG PO (09:07)
[2024-12-10 11:51] LABS: Glucose - Point of Care 96 mg/dl (70-99)
[2024-12-10 12:26] VITALS: BP 167/80
--- NOTE | 2024-12-10 12:53 | W.PN.HOSP.TC ---
Today's Communication/Plan
-
Discharge
Assessment / Plan
Assessment / Plan
84-year-old male with left facial droop.
CT of the head with acute on chronic right maxillary sinusitis. Severe white matter leukoaraiosis in the frontal and parietal lobes. Moderate bilateral frontal and parietal lobe volume loss.
On examination patient is awake alert.
Cardiovascular system S1-S2 appreciated
Chest clear to auscultation
Abdomen soft and nontender
Neuro exam-left LMN facial palsy, looks better
# Left facial droop with dizziness
Ruled out CVA
This is Phelan's palsy
Patient does report that she had some earache a few days ago on the left side. Also had severe vertigo
EKG shows atrial fibrillation
MRI no CVA
Aspirin continued, continue statin
Meclizine as needed for vertigo
Video swallow unremarkable
Steroids started for Phelan's palsy-symptoms are better
# Bradycardia-Hold metoprolol. Discussed with cardiology. Will not restart
# Permanent atrial fibrillation-on Eliquis for anticoagulation. Toprol stopped
# Essential hypertension-Hold Toprol-XL. Losartan started
# Diabetes type 2-hemoglobin A1c- 10.5 . Blood sugars have been elevated. Lantus and NovoLog started. We will leave Duglas for now until she completes steroids. After that this can come off. Sugar was elevated yesterday secondary to steroids
# History of CHF-continue Lasix, hold Toprol For discharge
# Hyperlipidemia-continue statin
# Hypothyroidism-continue Synthroid
# Deficiency anemia-continue ferrous sulfate
# Chronic asymmetric left lower extremity swelling with pain and redness
# History of fibromyalgia/spinal stenosis with history of laminectomy-continue tramadol and pregabalin
# Depression and anxiety-continue sertraline
# Obesity with a BMI 46
# Ex-smoker
# DVT prophylaxis-Eliquis
# DNR
Discussed with son on the phone
Discussed with nursing
More than 30 minutes spent in discharge including
Final examination of the patient
Summarizing hospital stay
Instructions for continuing care to all relevant caregivers
Preparation of discharge records, prescriptions, and referral forms
Total time spent (in minutes): 34 min
Anticipated Discharge: Today
Subjective/Interval History
-
Date of Service: December 10, 2024
Objective Data
-
Vital Signs:
Vital Signs
Temp Pulse Resp BP Pulse Ox
97.8 F 66 20 167/80 96
12/10/24 12:26 12/10/24 12:26 12/10/24 12:26 12/10/24 12:26 12/10/24 12:26
I&O
12/09/24 12/10/24 12/11/24
06:59 06:59 06:59
Intake Total 960 / 960 240 / 240
Output Total 1600 / 1600 400 / 400
Balance -640 / -640 -160 / -160
--- NOTE | 2024-12-10 13:03 | W.DS.TRANS ---
Addendum entered and electronically signed by Rob Haro MD 12/10/24 13:51:
Dictation- [id number]
Original Note:
DC Summary - Research Quality Assurance Analyst
-
Discharge Instructions:
Discharge Diagnosis/Procedures Left facial droop and dizziness secondary
probably to Phelan's Palsy
Bradycardia
Permanent atrial fibrillation
Essential hypertension
Diabetes type 2
History of CHF
Hyperlipidemia
Hypothyroidism
Deficiency Anemia
Chronic asymmetric left lower extremity swelling
with pain and redness
History of fibromyalgia/spinal stenosis with
history of laminectomy
Depression and anxiety
Sleep apnea
Obesity
Diet Diabetic, Carb Controlled,Other diet,2 Gram
Sodium,Restrict fluids to 64 oz
Additional Diets thin liquids
Activity As tolerated
Driving Restrictions No driving
Bathing Restrictions None
Other Services PT,OT
Specialty Instructions Weigh Daily
Instructions:
Stand-Alone Forms:
Changes to Home Medications: Yes
Discharge Medications:
DC Medications w/original date entered in Takes
atorvastatin 40 mg tablet 40 mg PO QPM 30 days #30 tabs 10/29/20
apixaban 5 mg tablet 5 mg PO BID Blood clot prevention/tx 07/23/22
sitagliptin phosphate 100 mg tablet (Januvia) 100 mg PO DAILY Diabetes 07/23/22
potassium chloride 20 mEq tablet,extended release(part/cryst) (Klor-Con M) 20 meq PO BID Supplement 30 days #0 tabs 07/30/22
Arnicare 1 applic topical HS lower bilateral legs 12/07/24
acetaminophen 325 mg tablet 650 mg PO Q4HPRN PRN mild pain/fever 12/07/24
albuterol sulfate 90 mcg/actuation aerosol inhaler 1 puff inhalation R Q6HPRN PRN sob 12/07/24
ammonium lactate 12 % lotion 1 applic topical DAILY b/l LE 12/07/24
ascorbic acid (vitamin C) 500 mg tablet (Vitamin C) 500 mg PO DAILY Supplement 12/07/24
aspirin 81 mg chewable tablet 81 mg PO DAILY Blood Clot Prevention/Tx 12/07/24
bisacodyl 10 mg rectal suppository 10 mg GA [id number] PRN 3 days no bm,mom ineffective 12/07/24
calcium carbonate 500 mg PO BID Supplement 12/07/24
famotidine 20 mg tablet (Pepcid) 20 mg PO DAILY Gastrointestinal Issue 12/07/24
ferrous sulfate 325 mg (65 mg iron) tablet 325 mg PO DAILY Supplement 12/07/24
furosemide 20 mg tablet 60 mg PO DAILY Fluid Retention/Swelling 12/07/24
guaifenesin 600 mg tablet, extended release 12 hr (Mucinex) 600 mg PO [id number] PRN cough 12/07/24
levothyroxine 100 mcg tablet 100 mcg PO DAILY Thyroid 12/07/24
magnesium hydroxide 400 mg/5 mL oral suspension (Milk of Magnesia) 30 ml PO HSPRN PRN constipation 12/07/24
magnesium oxide 400 mg PO BID Supplement 12/07/24
meclizine 12.5 mg tablet 12.5 mg PO Q6HPRN PRN vertigo 12/07/24
mirabegron 25 mg tablet,extended release 24 hr (Myrbetriq) 25 mg PO QPM Urinary Issue 12/07/24
ondansetron HCl 4 mg tablet 4 mg PO Q8HPRN PRN nausea 12/07/24
pramoxine 1 % towelette (Vagisil Anti-Itch) 1 towel topical DAILY labia majora/minora 12/07/24
pregabalin 50 mg capsule 50 mg PO BID Pain 12/07/24
sennosides 8.6 mg-docusate sodium 50 mg tablet (Senna-S) 1 tab-cap PO DAILY Constipation 12/07/24
sertraline 50 mg tablet 50 mg PO DAILY depression/anxiety 12/07/24
tramadol 50 mg tablet 50 mg PO BIDPRN PRN moderate pain 12/07/24
insulin aspart U-100 100 unit/mL (3 mL) subcutaneous pen (Novolog FlexPen U-100 Insulin aspart) 1 sliding scale dose SC AC Diabetes #0 mL 12/09/24
insulin glargine 100 unit/mL (3 mL) subcutaneous pen (Lantus Solostar U-100 Insulin) 12 unit (0.12 mL) SC DAILY #15 mL 12/09/24
losartan 25 mg tablet 25 mg PO DAILY 30 days #30 tabs 12/09/24
meloxicam 7.5 mg tablet 7.5 mg PO DAILY PRN Pain #0 tabs 12/09/24
miconazole nitrate 2 % topical spray powder 1 spray topical BID 30 days #130 grams 12/09/24
pantoprazole 40 mg tablet,delayed release 40 mg PO DAILY 30 days #30 tabs 12/09/24
perfluorohexyloctane (PF) 100 % eye drops (Miebo (PF)) 1 drp ophthalmic (eye) QID 30 days #3 mL 12/09/24
prednisone 50 mg tablet 50 mg PO DAILY 3 days #3 tabs 12/09/24
carboxymethylcellulose sodium 1 % eye gel in a dropperette (TheraTears) 1 drops ophthalmic (eye) QIDPRN PRN dry eye #0 ea 12/10/24
insulin aspart U-100 100 unit/mL (3 mL) subcutaneous pen 7 unit (0.07 mL) SC AC Diabetes #0 mL 12/10/24
Home Medication Changes
Prednisone, insulin, eyedrops, losartan are new
Glipizide stopped
Meloxicam changed to as needed
Pending Results: No
--- NOTE | 2024-12-10 14:04 | CM ---
Addendum entered by Kaitlynn Macedo RN 12/10/24 14:13:
Christiano son called he agrees with MD dc order. IMM reviewed he agrees with dc to [facility].
Original Note:
entered order for discharge.
Mary Ann liaison at [facility] aware of pt return today
Spoke with Ivana cruz cargo supervisor she accepted pt back under buttermaker continuous churn status.
Spoke with Christiano son he is aware of dcf and agrees with dc back to [facility].
[facility]
Report [phone]

PLAN Return to [facility]
[2024-12-10 16:30] VITALS: BP 131/64
--- NOTE | 2024-12-10 17:44 | PTCARENOTE ---
Called Albert metz to give report, no answer.
== END 2024-12-10 17:45 ==
LOC: 3 WEST ACU 18:19
PROVIDERS: Registered Nurse; ADMITTING PHYSICIAN Hospitalist; ATTENDING PHYSICIAN Hospitalist; CONSULT PHYSICIAN Psychiatry & Neurology Clinical Neurophysiology; EMERGENCY PHYSICIAN Emergency Medicine; FAMILY PHYSICIAN Student in an Organized Health Care Education/Training Program; OTHER PHYSICIAN Internal Medicine Cardiovascular Disease
DX: R29.810 Facial weakness (principal); R00.1 Bradycardia, unspecified; I48.21 Permanent atrial fibrillation; I13.0 Hypertensive heart and chronic kidney disease with heart failure and stage 1 through stage 4 chronic kidney disease, or unspecified chronic kidney disease; H55.00 Unspecified nystagmus; N18.9 Chronic kidney disease, unspecified; E11.22 Type 2 diabetes mellitus with diabetic chronic kidney disease; M16.0 Bilateral primary osteoarthritis of hip; J01.00 Acute maxillary sinusitis, unspecified; E11.65 Type 2 diabetes mellitus with hyperglycemia; E78.00 Pure hypercholesterolemia, unspecified; M79.7 Fibromyalgia; K21.9 Gastro-esophageal reflux disease without esophagitis; E89.0 Postprocedural hypothyroidism; H81.11 Benign paroxysmal vertigo, right ear; I50.9 Heart failure, unspecified; G47.33 Obstructive sleep apnea (adult) (pediatric); J44.9 Chronic obstructive pulmonary disease, unspecified; F41.9 Anxiety disorder, unspecified; D50.9 Iron deficiency anemia, unspecified; E66.01 Morbid (severe) obesity due to excess calories; F32.A Depression, unspecified; R22.42 Localized swelling, mass and lump, left lower limb; I89.0 Lymphedema, not elsewhere classified; M81.0 Age-related osteoporosis without current pathological fracture; M51.369 Other intervertebral disc degeneration, lumbar region without mention of lumbar back pain or lower extremity pain; M47.816 Spondylosis without myelopathy or radiculopathy, lumbar region; R13.10 Dysphagia, unspecified; G31.9 Degenerative disease of nervous system, unspecified; I67.81 Acute cerebrovascular insufficiency; R51.9 Headache, unspecified; M79.89 Other specified soft tissue disorders; I49.3 Ventricular premature depolarization; Z79.01 Long term (current) use of anticoagulants; Z90.710 Acquired absence of both cervix and uterus; Z86.73 Personal history of transient ischemic attack (TIA), and cerebral infarction without residual deficits; Z87.891 Personal history of nicotine dependence; Z79.84 Long term (current) use of oral hypoglycemic drugs; Z79.890 Hormone replacement therapy; Z79.1 Long term (current) use of non-steroidal anti-inflammatories (NSAID); Z79.4 Long term (current) use of insulin; Z88.0 Allergy status to penicillin; Z88.8 Allergy status to other drugs, medicaments and biological substances; Z79.82 Long term (current) use of aspirin; Z68.42 Body mass index [BMI] 45.0-49.9, adult; Z66 Do not resuscitate; Z79.899 Other long term (current) drug therapy; Z91.199 Patient's noncompliance with other medical treatment and regimen due to unspecified reason
CPT/HCPCS: 70450; 70551; 73502; 74230; 80048; 80053; 80061; 82947; 82962; 85025; 85027; 87070; 92610; 92611; 93005; 97162; 97167; 97530; 99285; G0378

== ENCOUNTER → 2025-01-04 11:08 | Outpatient (REF) | payer MEDICARE, OTHER, SELFPAY ==
[2025-01-04 12:01] LABS: HDL Cholesterol 39 mg/dl; LDL Cholesterol, Calculated 27 mg/dl; Total Cholesterol 110 mg/dl (50-199); Triglyceride 222 mg/dl (10-149); Very Low Density Lipoprotein 44 mg/dl (0-30)
== END ==
LOC: OLABN 11:08
PROVIDERS: ATTENDING PHYSICIAN Student in an Organized Health Care Education/Training Program
DX: E78.5 Hyperlipidemia, unspecified (principal)
CPT/HCPCS: 36415; 80061

== ENCOUNTER → 2025-01-07 08:27 | Outpatient (REF) | payer MEDICARE, OTHER, SELFPAY ==
[2025-01-07 09:21] LABS: % Basophils 1.1 % (0-2); % Eosinophils 4.2 % (0-6); % Immature Granulocytes 0.2 % (0-0.5); % Lymphocytes 37.7 % (20.5-51.1); % Monocytes 9.8 % (1.7-9.3); Absolute Basophils 0.1 10^3/uL (0-0.2); Absolute Eosinophils 0.3 10^3/uL (0-0.7); Absolute Lymphocytes 2.5 10^3/uL (1.2-3.4); Absolute Monocytes 0.7 10^3/uL (0.1-0.6); Absolute Neutrophils 3.1 10^3/uL (1.4-6.5); Hematocrit 42.9 % (37.0-47.0); Hemoglobin 14.6 g/dL (12.0-16.0); Mean Corpuscular Hgb 32.2 pg (27.0-31.0); Mean Corpuscular Volume 94.7 fL (81.0-99.0); Mean Platelet Volume 10.8 fL (7.4-10.4); Nucleated Red Blood Cells % 0 %; Platelet Count 160 10^3/uL (130-400); Red Blood Cell Count 4.53 10^6/uL (4.20-5.40); White Blood Cell Count 6.6 10^3/uL (4.8-10.8)
[2025-01-07 09:34] LABS: ALT (SGPT) 17 U/L (0-35); AST (SGOT) 22 U/L (14-36); Albumin 3.5 g/dl (3.5-5.0); Alkaline Phosphatase 123 U/L (38-126); Blood Urea Nitrogen 14 mg/dl (7-17); Calcium 8.9 mg/dl (8.4-10.2); Carbon Dioxide 34 mmol/L (22-30); Chloride 98 mmol/L (98-107); Glucose 217 mg/dl (70-99); Magnesium 1.7 mg/dl (1.6-2.3); Potassium 3.7 mmol/L (3.5-5.1); Sodium 139 mmol/L (135-145); Total Bilirubin 0.9 mg/dl (0.2-1.3); Total Protein 6.2 g/dl (6.3-8.2); eGFR > 60.00
[2025-01-07 18:47] LABS: Urine Albumin 2+ (Neg - Trace); Urine Bilirubin Negative (Negative); Urine Character Cloudy (Clear); Urine Color Yellow; Urine Glucose Negative (Negative); Urine Ketone 1+ (Negative); Urine Leukocyte 3+ (Negative); Urine Nitrite Positive (Negative); Urine Occult Blood 1+ (Negative); Urine Specific Gravity 1.015 (<1.030); Urine Urobilinogen Negative (Neg - 1+)
[2025-01-07 18:50] LABS: Urine Bacteria Many (Negative); Urine Calcium Oxalate Crystals Present; Urine White Cell 16-20 /HPF (0-5)
== END ==
LOC: OLABN 08:27
PROVIDERS: ATTENDING PHYSICIAN Student in an Organized Health Care Education/Training Program
DX: E11.42 Type 2 diabetes mellitus with diabetic polyneuropathy (principal); I50.32 Chronic diastolic (congestive) heart failure; I10 Essential (primary) hypertension; R30.0 Dysuria
CPT/HCPCS: 36415; 80053; 81003; 81015; 83735; 85025; 87086

== ENCOUNTER → 2025-01-10 16:57 | Outpatient (REF) | payer MEDICARE, OTHER, SELFPAY ==
[2025-01-10 17:36] LABS: Urine Albumin Negative (Neg - Trace); Urine Bilirubin Negative (Negative); Urine Character Clear (Clear); Urine Color Yellow; Urine Glucose 3+ (Negative); Urine Ketone Negative (Negative); Urine Leukocyte Negative (Negative); Urine Nitrite Negative (Negative); Urine Occult Blood Negative (Negative); Urine Urobilinogen Negative (Neg - 1+)
== END ==
LOC: OLABN 16:57
PROVIDERS: ATTENDING PHYSICIAN Student in an Organized Health Care Education/Training Program
DX: R53.83 Other fatigue (principal)
CPT/HCPCS: 81003; 87077; 87086; 87186

== ENCOUNTER → 2025-04-20 10:37 | Outpatient (REF) | payer MEDICARE, OTHER, SELFPAY ==
[2025-04-20 12:29] LABS: ALT (SGPT) 21 U/L (0-35); AST (SGOT) 24 U/L (14-36); Albumin 3.4 g/dl (3.5-5.0); Alkaline Phosphatase 156 U/L (38-126); Blood Urea Nitrogen 19 mg/dl (7-17); Calcium 8.6 mg/dl (8.4-10.2); Carbon Dioxide 30 mmol/L (22-30); Chloride 98 mmol/L (98-107); Glucose 363 mg/dl (70-99); Potassium 3.9 mmol/L (3.5-5.1); Sodium 135 mmol/L (135-145); Total Protein 6.4 g/dl (6.3-8.2); eGFR > 60.00
== END ==
LOC: OLABN 10:37
PROVIDERS: ATTENDING PHYSICIAN Student in an Organized Health Care Education/Training Program
DX: E11.65 Type 2 diabetes mellitus with hyperglycemia (principal)
CPT/HCPCS: 36415; 80053

== ENCOUNTER → 2025-04-25 10:21 | Outpatient (REF) | payer MEDICARE, OTHER, SELFPAY ==
[2025-04-25 10:52] LABS: Hematocrit 37.0 % (37.0-47.0); Hemoglobin 12.2 g/dL (12.0-16.0); Mean Corp Hgb Conc. 33.0 g/dL (33.0-37.0); Mean Corpuscular Volume 98.1 fL (81.0-99.0); Nucleated Red Blood Cells % 0 %; Platelet Count 167 10^3/uL (130-400); Red Cell Dist. Width 13.8 % (11.5-14.5)
[2025-04-25 10:59] LABS: ALT (SGPT) 15 U/L (0-35); AST (SGOT) 23 U/L (14-36); Albumin 3.3 g/dl (3.5-5.0); Alkaline Phosphatase 112 U/L (38-126); Blood Urea Nitrogen 19 mg/dl (7-17); Calcium 8.9 mg/dl (8.4-10.2); Carbon Dioxide 35 mmol/L (22-30); Chloride 99 mmol/L (98-107); Glucose 188 mg/dl (70-99); Magnesium 1.9 mg/dl (1.6-2.3); Potassium 3.7 mmol/L (3.5-5.1); Sodium 139 mmol/L (135-145); Total Protein 6.2 g/dl (6.3-8.2); eGFR > 60.00
== END ==
LOC: OLABN 10:21
PROVIDERS: ATTENDING PHYSICIAN Student in an Organized Health Care Education/Training Program
DX: J18.9 Pneumonia, unspecified organism (principal)
CPT/HCPCS: 36415; 80053; 83735; 85025